=== PATIENT | male | born 1940 | race Hispanic/Latino ===

== ENCOUNTER 2017-01-16 21:35 | Observation (INO) | payer MEDICARE, MEDICAID ==
--- NOTE | 2017-01-16 21:50 | ED PDOC ---
Arrival/HPI - General Chief Complaint: Chest Pain Time Seen by Provider: 01/16/17 21:37 Historian: Patient, [facility] - History of Present Illness Narrative History of Present Illness (Text): 01/16/17 21:45 Gamaliel Francis is a 76 year old male, whose past medical history includes CAD with stenting, severe dilated cardiomyopathy, diabetes, hyperlipidemia, hypertension, arthritis, Parkinson's disease, and anxiety, who presents to the Emergency department transferred from [facility] complaining of chest pain 30 minutes prior to arrival. Patient states he was given medication at the [facility] and notes chest pain has improved. Patient states chest pain is currently 2/10. Patient also reports intermittent shortness of breath, none currently. Patient denies any fever, chills, nausea, vomiting, diarrhea, urinary symptoms, back pain, neck pain, headache, dizziness, or any other complaints. PMD: Dr. Elvira Jauregui Model Dresser: Dr. Esther Greenwood Time/Duration: 1/2 hour Symptom Onset: Gradual Symptom Course: Improving Activities at Onset: Rest, Light Context: Home ([facility]) Past Medical History - Provider Review Nursing Documentation Reviewed: Yes - Cardiac Hx Hypertension: Yes Hx Pacemaker: No Other/Comment: Athersclerotic heart disease - Pulmonary Hx Asthma: No Hx Chronic Obstructive Pulmonary Disease (COPD): No - Neurological Hx Paralysis: No - Endocrine/Metabolic Hx Diabetes Mellitus Type 2: Yes - Hematological/Oncological Hx Anemia: Yes Hx Blood Transfusions: No Hx Blood Transfusion Reaction: No - Musculoskeletal/Rheumatological Hx Musculoskeletal Disorders: No (PARKINSONS) - Psychiatric Hx Emotional Abuse: No Hx Physical Abuse: No Hx Substance Use: No - Surgical History Hx Cardiac Catheterization: No Hx Coronary Artery Bypass Graft: No - Anesthesia Hx Anesthesia Reactions: No Hx Malignant Hyperthermia: No - Suicidal Assessment Feels Threatened In Home Enviroment: No Family/Social History - Physician Review Nursing Documentation Reviewed: Yes Family/Social History: No Known Family HX Smoking Status: Never Smoked Hx Alcohol Use: No Hx Substance Use: No Allergies/Home Meds Allergies/Adverse Reactions: Allergies No Known Allergies Allergy (Verified 01/16/17 21:57) Home Medications: Home Meds Medication Instructions Recorded Confirmed Acetaminophen [Tylenol 325mg tab] 650 mg PO Q4H PRN 01/16/17 01/16/17 Acetaminophen [Tylenol 325mg tab] 650 mg PO Q4H PRN 01/16/17 01/16/17 Alprazolam [Xanax] 0.25 mg PO DAILY PRN 01/16/17 01/16/17 Aspirin [Adult Low Dose Aspirin EC] 81 mg PO DAILY 01/16/17 01/16/17 Atorvastatin [Lipitor] 40 mg PO DAILY 01/16/17 01/16/17 Benztropine [Cogentin] 1 mg PO DAILY 01/16/17 01/16/17 Carbidopa/Levodopa [Sinemet Cr 1 each PO TID 01/16/17 01/16/17 25-100 Tablet] Clopidogrel [Plavix] 75 mg PO DAILY 01/16/17 01/16/17 Fenofibrate Nanocrystallized 145 mg PO DAILY 01/16/17 01/16/17 [Tricor] Folic Acid 1 mg PO DAILY 01/16/17 01/16/17 Metformin HCl [Glucophage] 1,000 mg PO BID 01/16/17 01/16/17 Metoprolol Tartrate [Lopressor] 12.5 mg PO BID 01/16/17 01/16/17 Promethazine DM [Phenergan DM 5 ml PO Q4H PRN 01/16/17 01/16/17 Syrup] QUEtiapine [SEROquel] 50 mg PO DAILY 01/16/17 01/16/17 Valsartan [Diovan] 80 mg PO DAILY 01/16/17 01/16/17 oxyCODONE/Acetaminophen [Percocet 1 tab PO Q6H PRN 01/16/17 01/16/17 5/325 mg Tab] Review of Systems - Physician Review All systems were reviewed & negative as marked: Yes - Review of Systems Constitutional: Normal. absent: Fevers Eyes: Normal ENT: Normal Respiratory: SOB Cardiovascular: Chest Pain Gastrointestinal: Normal. absent: Abdominal Pain, Diarrhea, Nausea, Vomiting Genitourinary Male: Normal. absent: Dysuria, Frequency, Hematuria, Urinary Output Changes Musculoskeletal: Normal. absent: Back Pain, Neck Pain Skin: Normal. absent: Rash Neurological: Normal. absent: Headache, Dizziness Endocrine: Normal Hemo/Lymphatic: Normal Psychiatric: Normal Physical Exam Vital Signs Reviewed: Yes Vital Signs Temp Pulse Resp BP Pulse Ox 01/17/17 00:38 62 18 122/55 L 99 01/16/17 21:44 97.7 F 79 14 140/77 95 Temperature: Afebrile Blood Pressure: Normal Pulse: Regular Respiratory Rate: Normal Appearance: Positive for: Well-Appearing, Non-Toxic, Comfortable Pain Distress: None Mental Status: Positive for: Alert and Oriented X 3 - Systems Exam Head: Present: Atraumatic, Normocephalic Pupils: Present: PERRL Extroacular Muscles: Present: EOMI Conjunctiva: Present: Normal Mouth: Present: Moist Mucous Membranes Neck: Present: Normal Range of Motion Respiratory/Chest: Present: Clear to Auscultation, Good Air Exchange. No: Respiratory Distress, Accessory Muscle Use Cardiovascular: Present: Regular Rate and Rhythm, Normal S1, S2. No: Murmurs Abdomen: Present: Normal Bowel Sounds. No: Tenderness, Distention, Peritoneal Signs Back: Present: Normal Inspection Upper Extremity: Present: Normal Inspection. No: Cyanosis, Edema Lower Extremity: Present: Normal Inspection. No: Edema Neurological: Present: GCS=15, CN II-XII Intact, Speech Normal Skin: Present: Warm, Dry, Normal Color. 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 Plan: -- EKG -- Chest X-ray -- Labs, cardiac enzymes -- Reassess and disposition Prior Visits: Notes and results from previous visits were reviewed. On 11/05/2016, pt underwent cardiac catheterization with stent placement. Progress Notes: Reviewed EKG, NSR at [address] LBBB. Non-specific ST/T wave changes. Unchanged from EKG on 10/30/2016. 01/16/17 22:30 Reviewed radiology, Chest X-ray shows no acute processes. 01/17/17 00:[address] Moore, covering for Dr. Jauregui, who is aware and agrees with plan. Pt will go to Telemetry observation for chest pain under Dr. Jauregui's service. Dr Greenwood on consult. Pt is no acute distress, Discussed results and hospital observation plan with pt , who verbalizes understanding. - Lab Interpretations Lab Results: 01/16/17 22:15 01/16/17 22:15 Lab Results 01/16/17 22:15: Sodium 137, Potassium 3.9, Chloride 102, Carbon Dioxide 23, Anion Gap 16, BUN 23 H, Creatinine 1.1, Est GFR ( Amer) > 60, Est GFR ( Non-Af Amer) > 60, Random Glucose 103, Calcium 10.0, Magnesium 1.9, Total Bilirubin 0.9, AST 26, ALT 23, Alkaline Phosphatase 48, Lactate Dehydrogenase 647, Total Creatine Kinase 78, Troponin I < 0.01, NT-Pro-B Natriuret Pep 1380 H , Total Protein 7.9, Albumin 4.3, Globulin 3.6, Albumin/Globulin Ratio 1.2 01/16/17 22:15: WBC 7.6, RBC 3.98, Hgb 12.0 L, Hct 34.8 L, MCV 87.4, MCH 30.2, MCHC 34.5, RDW 13.2, Plt Count 203, MPV 9.1, Gran % 75.1 H, Lymph % (Auto) 16.3 L, [place] % (Auto) 5.8, Eos % (Auto) 2.5, Baso % (Auto) 0.3, Gran # 5.71, Lymph # 1.2, [place] # 0.4, Eos # 0.2, Baso # 0.02 I have reviewed the lab results: Yes - RAD Interpretation Radiology Orders: 01/16/17 21:57 CHEST PORTABLE [RAD] Stat Risk Investigator: ED Physician - EKG Interpretation Interpreted by ED Physician: Yes Type: 12 lead EKG - Medication Orders Current Medication Orders: Discontinued Medications Acetaminophen (Tylenol 325mg Tab) 650 mg PO Q4H PRN PRN Reason: Pain, Mild (1-3) Alprazolam (Xanax) 0.25 mg PO STAT STA PRN Reason: Protocol Stop: 01/17/17 02:59 Last Admin: 01/17/17 03:10 Dose: 0.25 mg Alprazolam (Xanax) 0.25 mg PO DAILY PRN; Protocol PRN Reason: Anxiety Stop: 01/24/17 09:22 Aspirin (Ecotrin) 81 mg PO DAILY [facility] Last Admin: 01/17/17 10:22 Dose: 81 mg Atorvastatin Calcium (Lipitor) 40 mg PO DIN LIOR Benztropine Mesylate (Cogentin) 1 mg PO DAILY [facility] Last Admin: 01/17/17 10:21 Dose: 1 mg Carbidopa/Levodopa (Sinemet Cr) 1 tab PO TID [facility] Last Admin: 01/17/17 14:23 Dose: 1 tab Clopidogrel Bisulfate (Plavix) 75 mg PO DAILY [facility] Last Admin: 01/17/17 10:23 Dose: 75 mg Fenofibrate (Tricor) 145 mg PO DAILY [facility] Last Admin: 01/17/17 10:23 Dose: 145 mg Folic Acid (Folic Acid) 1 mg PO DAILY [facility] Last Admin: 01/17/17 10:22 Dose: 1 mg Insulin Human Regular (Humulin R Low) 0 units SC [facility] PRN Reason: Protocol Last Admin: 01/17/17 12:21 Dose: 2 units Losartan Potassium (Cozaar) 50 mg PO DAILY [facility] Last Admin: 01/17/17 10:21 Dose: 50 mg Metformin HCl (Glucophage) 1,000 mg PO BID [facility] Last Admin: 01/17/17 10:22 Dose: 1,000 mg Metoprolol Tartrate (Lopressor) 12.5 mg PO BID [facility] Last Admin: 01/17/17 10:22 Dose: 12.5 mg Nitroglycerin (Nitro-Bid 2% Oint) 1 ea TOP ONCE STA Stop: 01/17/17 00:15 Last Admin: 01/17/17 00:38 Dose: Not Given Non-Admin Reason: Patient Refused Quetiapine Fumarate (Seroquel) 50 mg PO DAILY [facility] Last Admin: 01/17/17 10:23 Dose: 50 mg - Scribe Statement The provider has reviewed the documentation as recorded by the Vasu Brower All medical record entries made by the Vasu were at my direction and personally dictated by me. I have reviewed the chart and agree that the record accurately reflects my personal performance of the history, physical exam, medical decision making, and the department course for this patient. I have also personally directed, reviewed, and agree with the discharge instructions and disposition. Disposition/Present on Arrival - Present on Arrival Any Indicators Present on Arrival: No History of DVT/PE: No History of Uncontrolled Diabetes: No Urinary Catheter: No History of Decub. Ulcer: No History Surgical Site Infection Following: None - Disposition Have Diagnosis and Disposition been Completed?: Yes Diagnosis: Chest pain Disposition: HOSPITALIZED Disposition Time: 00:15 Condition: GOOD
[2017-01-16 22:22] LABS: ADD MANUAL DIFF? NO
[2017-01-16 22:35] LABS: BASO # 0.02 K/mm3 (0.0-2.0); BASO % 0.3 % (0.0-3.0); EOS # 0.2 (0.0-0.7); EOS % 2.5 % (1.5-5.0); GRAN # 5.71 (1.4-6.5); GRAN % 75.1 % (50.0-68.0); HEMATOCRIT 34.8 % (42.0-52.0); LYMPH # 1.2 (1.2-3.4); LYMPH % 16.3 % (22.0-35.0); MEAN CELL VOLUME 87.4 fL (80.0-105.0); MEAN CORPUSCULAR HEMOGLOBIN 30.2 pg (25.0-35.0); MEAN CORPUSCULAR HGB CONC 34.5 g/dl (31.0-37.0); MEAN PLATELET VOLUME 9.1 fl (7.0-11.0); MONO # 0.4 (0.1-0.6); MONO % 5.8 % (1.0-6.0); PLATELET COUNT 203 10^3/uL (120.0-450.0); RED CELL DISTRIBUTION WIDTH 13.2 % (11.5-14.5); WHITE BLOOD COUNT 7.6 10^3/ul (4.5-11.0)
[2017-01-16 22:40] LABS: ALB/GLOB RATIO 1.2 (1.1-1.8); ALKALINE PHOSPHATASE 48 U/L (38-133); ALT/SGPT 23 U/L (7-56); AST/SGOT 26 U/L (15-59); BILIRUBIN,TOTAL 0.9 mg/dL (0.2-1.3); BLOOD UREA NITROGEN 23 mg/dL (7-21); CARBON DIOXIDE 23 mmol/L (21-33); CHLORIDE 102 mmol/L (98-107); GFR AFRICAN-AMERICAN > 60; GLUCOSE,RANDOM 103 mg/dL (70-110); MAGNESIUM 1.9 mg/dL (1.7-2.2); POTASSIUM 3.9 mmol/L (3.6-5.0); SODIUM 137 mmol/L (132-148); TOTAL PROTEIN 7.9 g/dL (5.8-8.3)
[2017-01-16 22:48] LABS: TROPONIN I < 0.01 ng/mL
[2017-01-17] MEDS ORDERED: Nitroglycerin 2% Ointment Foilpak UD TOP STA (00:14)
--- NOTE | 2017-01-17 03:09 | CP.PCM.PN ---
Subjective - Date & Time of Evaluation Date of Evaluation: 01/17/17 Time of Evaluation: 02:57 - Subjective Subjective: S:Patient was seen at bedside because he was requesting xanax. States that he has been on xanax and can not sleep without having it. Can no tell me who has been prescribing xanax for him. Has no other complaints. Pertinent medical record was reviewed. O: Last Vital Signs 3 Temp 98.7 F 01/17/17 02:58 Pulse 60 01/17/17 02:58 Resp 20 01/17/17 02:58 BP 140/79 01/17/17 02:58 Pulse Ox 99 01/17/17 02:58 Awake, alert, not in distress. LUNGS: Normal breathing pattern NEURO:Speech is normal. A/P:Insomnia. Anxiety. Xanax 0.25 mg PO x 1. Objective - Vital Signs/Intake and Output Vital Signs (last 24 hours): Temp Pulse Resp BP Pulse Ox 97.7 F 62 18 122/55 L 99 01/16/17 21:44 01/17/17 00:38 01/17/17 00:38 01/17/17 00:38 01/17/17 00:38 - Medications Medications: Current Medications Acetaminophen (Tylenol 325mg Tab) 650 mg PO Q4H PRN PRN Reason: Pain, Mild (1-3) Insulin Human Regular (Humulin R Low) 0 units SC ACHS LIOR PRN Reason: Protocol
[2017-01-17 03:56] LABS: URINE APPEARANCE CLEAR (CLEAR); URINE BILIRUBIN NEGATIVE (NEGATIVE); URINE BLOOD NEGATIVE (NEGATIVE); URINE COLOR YELLOW (YELLOW); URINE GLUCOSE (UA) 100 mg/dL (NEGATIVE); URINE KETONE NEGATIVE (NEGATIVE); URINE LEUKOCYTE ESTERASE NEGATIVE Leu/uL (NEGATIVE); URINE PROTEIN NEGATIVE mg/dL (<30 mg/dL); URINE UROBILINOGEN 0.2 E.U./dL (<1 E.U./dL)
[2017-01-17 04:03] VITALS: BMI 25.4
[2017-01-17 06:01] VITALS: O2SAT 98
[2017-01-17] MEDS: Insulin Reg-LOW-Coverage SC SCH ×2 (08:03→12:21)
--- NOTE | 2017-01-17 08:43 | RAD ---
PROCEDURE: CHEST RADIOGRAPH, 1 VIEW HISTORY: cp COMPARISON: None available. FINDINGS: LUNGS: Clear. PLEURA: No pneumothorax or pleural fluid seen. CARDIOVASCULAR: Normal. OSSEOUS STRUCTURES: The osseous structures demonstrate degenerative changes. VISUALIZED UPPER ABDOMEN: Upper abdomen is suboptimally evaluated. OTHER FINDINGS: None. IMPRESSION: Clear lungs.
[2017-01-17 09:44] LABS: HEMATOCRIT 34.4 % (42.0-52.0); MEAN CELL VOLUME 88.2 fL (80.0-105.0); MEAN PLATELET VOLUME 9.4 fl (7.0-11.0); RED CELL DISTRIBUTION WIDTH 13.4 % (11.5-14.5); WHITE BLOOD COUNT 5.7 10^3/ul (4.5-11.0)
[2017-01-17] MEDS ORDERED: Non Formulary Medication (Valsartan [Diovan] 80 MG) PO SCH (10:00)
[2017-01-17] MEDS ORDERED: Non Formulary Medication (Quetiapine [Seroquel] 50 MG) PO SCH (10:00)
[2017-01-17 10:18] LABS: ALB/GLOB RATIO 1.1 (1.1-1.8); ALKALINE PHOSPHATASE 46 U/L (38-133); ALT/SGPT 29 U/L (7-56); AST/SGOT 42 U/L (15-59); BILIRUBIN,TOTAL 0.9 mg/dL (0.2-1.3); BLOOD UREA NITROGEN 22 mg/dL (7-21); CALCIUM 9.6 mg/dL (8.4-10.5); CARBON DIOXIDE 22 mmol/L (21-33); CHLORIDE 103 mmol/L (98-107); GFR AFRICAN-AMERICAN > 60; GLUCOSE,RANDOM 91 mg/dL (70-110); POTASSIUM 3.9 mmol/L (3.6-5.0); SODIUM 138 mmol/L (132-148); TOTAL PROTEIN 7.4 g/dL (5.8-8.3)
[2017-01-17] MEDS: Carbidopa/Levodopa 25/100 CR PO SCH ×2 (10:23→14:23)
[2017-01-17 10:38] LABS: TROPONIN I < 0.01 ng/mL
--- NOTE | 2017-01-17 10:38 | CARD ---
APPROVED REPORT EKG Measurement Heart [id number] <Conclusion> Normal sinus rhythm Left bundle branch block No change
[2017-01-17 11:50] VITALS: BP 140/83; PULSE 66; RESP 19; TEMP 97.9
--- NOTE | 2017-01-17 13:40 | HP ---
I know the patient very well. I see [facility] at [facility] monthly. Apparently, he came in last night with chest pain. It was severe, was not feeling well and they came in for observation for chest pain, to get troponins and to make sure we are not missing a heart attack. PAST MEDICAL HISTORY: CAD with stenting, severe dilated cardiomyopathy, diabetes, hyperlipidemia, hy pertension, arthritis, Parkinson disease and anxiety, atherosclerotic heart disease, type 2 diabetes, COPD. FAMILY HISTORY: Hypertension in the family. He never smoked, never drank, did not do drugs. ALLERGIES: No known drug allergies. MEDICATIONS: He is on a lot. Xanax, Tylenol, aspirin, Lipitor, benztropine, Sinemet, Plavix, TriCor , folic acid, Glucophage, Lopressor, Phenergan DM, Seroquel, Diovan and Percocet p.r.n. which he does not really take. REVIEW OF SYSTEMS: No acute changes in vision or hearing. No sore throat. No headache, dizziness, numbness. No shortness of breath, no coughing, no mucus. There is chest pain, some pressure, none n ow, that subsided. No nausea, vomiting, constipation, diarrhea. He is urinating fine. No joint navin ns or back pains. He does walk with a shuffle from the Parkinson's. Skin is intact, no rashes. No bleeding. PHYSICAL EXAMINATION: VITAL SIGNS: He has a 97.7 temp, 79 pulse, 14 respiratory rate, 140/77 blood pressure, 95% O2 sat on room air. HEENT: His head is atraumatic, normocephalic. Extraocular muscles are intact. Pupils equally reacti ve to light and accommodation. Throat is moist. GENERAL: He is well-appearing, nontoxic, comfortable. He is alert and oriented x 3. NECK: Supple. Good range of motion. HEART: Regular rate. Normal S1, S2. LUNGS: Decreased breath sounds, but clear to auscultation. ABDOMEN: Soft, nontender, positive bowel sounds, no guarding, no rebound, no CVA tenderness. EXTREMITIES: Have no edema. NEUROLOGIC: His GCS is 15. Cranial nerves II-XII grossly intact. Normal speech. Alert and oriente d x 3. SKIN: Warm and dry. No rashes. Intact. MUSCULOSKELETAL: The chest pain has left him at this time. He had multiple tests. Urine is clean. He has a 137 sodium, potassium 3.9, BUN 23, creatinine 1.1, GFR is greater than 60, sugar is 103, calcium is 10, magnesium 1.9, total bili is 0.9, AST is 26, ALT is 23, alk phos 48. Troponin I is less than 0.01. I am waiting for the next one. BNP is 1380. To dwaine protein 7.9, albumin is 4.3. White count 7.6, 12 hemoglobin, 34.8 hematocrit with 203 platelets. He will be put back on his medication. He will have another troponin this morning. His chest x-ray showed clear lungs. I will not give him any diuretics for the elevated BNP. He is here for chest pa in, waiting for one more troponin. There is a consult for cardiology. They can follow up on the out patient. He will probably go home on the same medications he came in on and he is here for chest navin n, rule out myocardial infarction. The patient is comfortable, resting in bed. I am hoping to disch arge him later today when the labs come back. Glen Jauregui DO cc: [id number] TT: 01/17/2017 13:39:38 en
--- NOTE | 2017-01-17 19:40 | DS ---
He came in for chest pain. He is doing a lot better, waiting for the troponin to come back. When it comes back normal, like the first one, he will be transferred back to [facility] at the [facility] he is from. He will go back on his same medications that he came in on. VITAL SIGNS: 98.2, 62 pulse, 123/61 blood pressure, 98% room air, 18 respiratory rate. PLAN: He has got stat labs for this morning and I am hoping that they are good, and when they are go od, he will be discharged home. He understands that. He wants to go back to the [facility] today. His chest pain is all gone. He did very well so far. He will be discharged back to the [facility]. Glen Jauregui DO cc: [id number] TT: 01/17/2017 19:40:14 margaret
== END 2017-01-17 14:42 | disposition home or self-care (01) ==
LOC: ED 21:35 → ERH 01-17 00:33 → 2RSO 01-17 02:27
PROVIDERS: ADMIT Family Medicine; ATTEND Family Medicine
DX: R07.9 Chest pain, unspecified (principal); I42.0 Dilated cardiomyopathy; I25.10 Atherosclerotic heart disease of native coronary artery without angina pectoris; I10 Essential (primary) hypertension; G20 Parkinson's disease; F41.9 Anxiety disorder, unspecified; E11.9 Type 2 diabetes mellitus without complications; M19.90 Unspecified osteoarthritis, unspecified site; J44.9 Chronic obstructive pulmonary disease, unspecified; E78.5 Hyperlipidemia, unspecified; G47.00 Insomnia, unspecified; Z95.5 Presence of coronary angioplasty implant and graft; Z82.49 Family history of ischemic heart disease and other diseases of the circulatory system
CPT/HCPCS: 36415; 71010; 80053; 81003; 82550; 83615; 83735; 83880; 84484; 85025; 85027; 93005; 99285; G0378

== ENCOUNTER 2017-11-22 19:38 | Emergency (ER) | payer MEDICARE, MEDICAID ==
[2017-11-22 19:41] VITALS: BMI 25.4
[2017-11-22] MEDS ORDERED: Oxymetazoline 0.05% Nasal Spray (30 ml) NS STA (20:00)
--- NOTE | 2017-11-22 20:00 | ED PDOC ---
Arrival/HPI - General Chief Complaint: Dizziness/Lightheaded Time Seen by Provider: 11/22/17 19:51 Historian: Patient - History of Present Illness Narrative History of Present Illness (Text): 11/22/17 19:57 Gamaliel Francis is a 77 year old male, whose past medical history includes CAD with stenting, severe dilated cardiomyopathy, diabetes, hyperlipidemia, hypertension, arthritis, Parkinson's disease, and anxiety, who presents to the Emergency department transferred from [facility] complaining of intermittent epistaxis from right nare and coughing up dark colored mucus today. No other complaints offered at this time. Time/Duration: 24 hours Symptom Course: Intermittent Activities at Onset: Light Context: Home Past Medical History - Provider Review Nursing Documentation Reviewed: Yes - Cardiac Hx Hypertension: Yes Hx Pacemaker: No Other/Comment: Athersclerotic heart disease - Pulmonary Hx Asthma: No Hx Chronic Obstructive Pulmonary Disease (COPD): No - Neurological Hx Paralysis: No - HEENT Hx HEENT Disorder: Yes (uses eyeglasses) - Renal Hx Renal Disorder: No - Endocrine/Metabolic Hx Diabetes Mellitus Type 2: Yes - Hematological/Oncological Hx Anemia: Yes Hx Blood Transfusions: No Hx Blood Transfusion Reaction: No - Integumentary Hx Dermatological Disorder: No - Musculoskeletal/Rheumatological Hx Musculoskeletal Disorders: No (PARKINSONS) - Gastrointestinal Hx Gastrointestinal Disorders: No - Genitourinary/Gynecological Hx Genitourinary Disorders: No - Psychiatric Hx Emotional Abuse: No Hx Physical Abuse: No Hx Substance Use: No - Surgical History Hx Cardiac Catheterization: No Hx Coronary Artery Bypass Graft: No - Anesthesia Hx Anesthesia: Yes Hx Anesthesia Reactions: No Hx Malignant Hyperthermia: No - Suicidal Assessment Feels Threatened In Home Enviroment: No Family/Social History - Physician Review Nursing Documentation Reviewed: Yes Family/Social History: No Known Family HX Smoking Status: Never Smoked Hx Alcohol Use: No Hx Substance Use: No Allergies/Home Meds Allergies/Adverse Reactions: Allergies No Known Allergies Allergy (Verified 01/16/17 21:57) Home Medications: Home Meds Medication Instructions Recorded Confirmed Acetaminophen [Tylenol 325mg tab] 650 mg PO Q4H PRN 01/16/17 01/16/17 Acetaminophen [Tylenol 325mg tab] 650 mg PO Q4H PRN 01/16/17 01/16/17 Alprazolam [Xanax] 0.25 mg PO DAILY PRN 01/16/17 01/16/17 Aspirin [Adult Low Dose Aspirin EC] 81 mg PO DAILY 01/16/17 01/16/17 Atorvastatin [Lipitor] 40 mg PO DAILY 01/16/17 01/16/17 Benztropine [Cogentin] 1 mg PO DAILY 01/16/17 01/16/17 Carbidopa/Levodopa [Sinemet Cr 1 each PO TID 01/16/17 01/16/17 25-100 Tablet] Clopidogrel [Plavix] 75 mg PO DAILY 01/16/17 01/16/17 Fenofibrate Nanocrystallized 145 mg PO DAILY 01/16/17 01/16/17 [Tricor] Folic Acid 1 mg PO DAILY 01/16/17 01/16/17 Metformin HCl [Glucophage] 1,000 mg PO BID 01/16/17 01/16/17 Metoprolol Tartrate [Lopressor] 12.5 mg PO BID 01/16/17 01/16/17 Promethazine DM [Phenergan DM 5 ml PO Q4H PRN 01/16/17 01/16/17 Syrup] QUEtiapine [SEROquel] 50 mg PO DAILY 01/16/17 01/16/17 Valsartan [Diovan] 80 mg PO DAILY 01/16/17 01/16/17 oxyCODONE/Acetaminophen [Percocet 1 tab PO Q6H PRN 01/16/17 01/16/17 5/325 mg Tab] Review of Systems - Review of Systems Constitutional: absent: Fevers, Night Sweats Eyes: absent: Vision Changes ENT: Epistaxis. absent: Hearing Changes Respiratory: absent: SOB Cardiovascular: absent: Chest Pain Gastrointestinal: absent: Abdominal Pain Genitourinary Male: absent: Dysuria Musculoskeletal: absent: Arthralgias, Back Pain Skin: absent: Rash, Pruritis Neurological: absent: Headache, Dizziness Endocrine: absent: Diaphoresis Hemo/Lymphatic: absent: Adenopathy Psychiatric: absent: Anxiety, Depression Physical Exam Vital Signs Reviewed: Yes Vital Signs Temp Pulse Resp BP Pulse Ox 11/22/17 23:20 97.9 F 74 18 149/81 97 11/22/17 20:09 98.3 F 78 20 153/83 H 99 - Systems Exam Head: Present: Atraumatic, Normocephalic Pupils: Present: PERRL Extroacular Muscles: Present: EOMI Conjunctiva: Present: Normal Mouth: Present: Moist Mucous Membranes Pharnyx: Present: Other (posterior pharynx without post nasal drip or bleeding) Nose (Internal): Present: Other (Dried blood in both nares) Neck: Present: Normal Range of Motion Respiratory/Chest: Present: Clear to Auscultation, Good Air Exchange. No: Respiratory Distress, Accessory Muscle Use Cardiovascular: Present: Regular Rate and Rhythm, Normal S1, S2. No: Murmurs Abdomen: Present: Normal Bowel Sounds. No: Tenderness, Distention, Peritoneal Signs Back: Present: Normal Inspection Upper Extremity: Present: Normal Inspection. No: Cyanosis, Edema Lower Extremity: Present: Normal Inspection. No: Edema Neurological: Present: GCS=15, CN II-XII Intact, Speech Normal Skin: Present: Warm, Dry, Normal Color. No: Rashes Psychiatric: Present: Alert, Oriented x 3, Normal Insight, Normal Concentration Medical Decision Making ED Course and Treatment: 11/22/17 20:01 Impression: 77 year old male complaining of intermittent epistaxis from right nare and coughing up dark colored mucus today Plan: -- Chest X-ray -- Type and Screen -- Labs -- EKG -- Afrin -- Reassess and disposition Prior Visits: Notes and results from previous visits were reviewed. Patient was last seen in the emergency department on 01/16/17 for chest pain. Patient was admitted to hospitalist care for further evaluation. Progress Notes: 11/22/17 21:45 Chest X-ray- Wide mediastinum, no active disease, as read by me. CT Chest With Intravenous Contrast FINDINGS: LUNGS: Mild emphysema. Biapical scarring/blebs. Bibasilar atelectasis/scarring. PLEURAL SPACE: No pneumothorax. No significant effusion. HEART: No cardiomegaly. No significant pericardial effusion. BONES/JOINTS: Degenerative changes. No acute fracture. SOFT TISSUES: Unremarkable. VASCULATURE: Atherosclerosis. No thoracic aortic aneurysm. LYMPH NODES: No enlarged lymph nodes. PANCREAS: Difuse pancreatic calcifications from chronic pancreatitis. IMPRESSION: 1. Mild emphysema. Biapical scarring/blebs. Bibasilar atelectasis/scarring. 2. Difuse pancreatic calcifications from chronic pancreatitis. Thank you for allowing us to participate in the care of your patient. Dictated and Authenticated by: Sabrina Olivier MD 11/23/2017 12:07 AM Eastern Time ([place] & [place]) 11/23/17 00:23 EKG: Ordered, reviewed, and independently interpreted the EKG. Rate : 70 BPM Rhythm : NSR Interpretation : left bundle branch block - Lab Interpretations Lab Results: 11/22/17 21:34 11/22/17 21:34 Lab Results 11/22/17 21:34: Blood Type O POSITIVE, Antibody Screen Negative, BBK History Checked Patient has bt 11/22/17 21:34: Sodium 140, Potassium 5.0, Chloride 105, Carbon Dioxide 25, Anion Gap 15, BUN 44 H, Creatinine 1.4, Est GFR ( Amer) 59, Est GFR (Non- Af Amer) 49, Random Glucose 200 H, Calcium 9.9, Total Bilirubin 0.3, AST 51, ALT 25, Alkaline Phosphatase 91, Total Protein 7.6, Albumin 4.0, Globulin 3.6, Albumin/Globulin Ratio 1.1 11/22/17 21:34: PT 14.1 H, INR 1.23 H 11/22/17 21:34: WBC 7.3 D, RBC 3.40 L, Hgb 10.5 L, Hct 30.4 L, MCV 89.4, MCH 30.9, MCHC 34.5, RDW 12.2, Plt Count 217, MPV 9.1, Gran % 71.7 H, Lymph % (Auto ) 20.8 L, [place] % (Auto) 4.2, Eos % (Auto) 2.9, Baso % (Auto) 0.4, Gran # 5.24, Lymph # (Auto) 1.5, [place] # (Auto) 0.3, Eos # (Auto) 0.2, Baso # (Auto) 0.03 I have reviewed the lab results: Yes - RAD Interpretation Radiology Orders: 11/22/17 20:00 CHEST PORTABLE [RAD] Stat 11/22/17 21:42 CHEST W/CONTRAST [CT] Stat - Medication Orders Current Medication Orders: Discontinued Medications Sodium Chloride (Sodium Chloride 0.9%) 1,000 mls @ 999 mls/hr IV .Q1H1M STA Stop: 11/22/17 22:43 Last Admin: 11/22/17 22:11 Dose: 999 mls/hr eMAR Start Stop Document 11/22/17 22:11 LA (Rec: 11/22/17 22:11 LA [id number]) Intravenous Solution Start Date 11/22/17 Start Time 22:11 Oxymetazoline HCl (Afrin 0.05%) 1 ml NS STAT STA Stop: 11/22/17 20:01 Last Admin: 11/22/17 21:31 Dose: 1 ml - PA / AWS DEVELOPER / Resident Statement MD/DO has reviewed & agrees with the documentation as recorded. - Scribe Statement The provider has reviewed the documentation as recorded by the Scribe Cynthia Houston Provider Scribe Attestation: All medical record entries made by the Scribe were at my direction and personally dictated by me. I have reviewed the chart and agree that the record accurately reflects my personal performance of the history, physical exam, medical decision making, and the department course for this patient. I have also personally directed, reviewed, and agree with the discharge instructions and disposition. Disposition/Present on Arrival - Present on Arrival Any Indicators Present on Arrival: No History of DVT/PE: No History of Uncontrolled Diabetes: No Urinary Catheter: No History of Decub. Ulcer: No History Surgical Site Infection Following: None - Disposition Have Diagnosis and Disposition been Completed?: Yes Diagnosis: Epistaxis, recurrent Disposition: HOME/ ROUTINE Disposition Time: 00:18 Patient Plan: Discharge Condition: GOOD Discharge Instructions (ExitCare): Nosebleeds (DC) Additional Instructions: Mr Francis- Soremma this happened to you today. Do Not Eat or Drink anything Hot, the nosebleed will come back. Follow up with ENT. Use the Flonase twice daily. All of your other tests were good. Return to us if any problems. Macho- Dr. Killian Lanier Prescriptions: Fluticasone Furoate [Flonase Sensimist] 9.9 ml NS BID #1 spray.susp Referrals: Glen Jauregui DO [Primary Care Provider] - Follow up with primary Preston Gonzalez DO [Staff Provider] - Follow up with primary Forms: Wys[employer] (Tajik)
[2017-11-22] MEDS ORDERED: Sodium Chloride 0.9% 1,000 ML IV STA (21:43)
[2017-11-22 21:55] LABS: BASO # 0.03 K/mm3 (0.0-2.0); BASO % 0.4 % (0.0-3.0); EOS # 0.2 (0.0-0.7); EOS % 2.9 % (1.5-5.0); GRAN # 5.24 (1.4-6.5); GRAN % 71.7 % (50.0-68.0); HEMOGLOBIN 10.5 g/dL (14.0-18.0); LYMPH # 1.5 (1.2-3.4); LYMPH % 20.8 % (22.0-35.0); MEAN CELL VOLUME 89.4 fl (80.0-105.0); MEAN CORPUSCULAR HEMOGLOBIN 30.9 pg (25.0-35.0); MEAN CORPUSCULAR HGB CONC 34.5 g/dl (31.0-37.0); MEAN PLATELET VOLUME 9.1 fl (7.0-11.0); MONO # 0.3 (0.1-0.6); MONO % 4.2 % (1.0-6.0); RBC 3.4 10^6/uL (3.5-6.1); RED CELL DISTRIBUTION WIDTH 12.2 % (11.5-14.5); WHITE BLOOD COUNT 7.3 10^3/ul (4.5-11.0)
[2017-11-22 22:00] LABS: INR 1.23 (0.93-1.08); PROTHROMBIN TIME 14.1 SECONDS (9.4-12.5)
[2017-11-22 22:06] LABS: ALB/GLOB RATIO 1.1 (1.1-1.8); CALCIUM 9.9 mg/dL (8.4-10.5)
[2017-11-22] MEDS ORDERED: Iohexol 350 MG/100 ML VIAL ONE (22:09)
[2017-11-23 00:58] VITALS: BP 149/81; PULSE 74; RESP 18; TEMP 97.9; O2SAT 97
--- NOTE | 2017-11-23 08:53 | CT ---
PROCEDURE: CT Chest with contrast HISTORY: Widened Mediastinum COMPARISON: None. TECHNIQUE: Contiguous axial images were obtained through the chest with intravenous contrast enhancement. Sagittal and coronal reconstructions were performed. IV contrast: 100 cc of Omni 350 Radiation dose (DLP): 431 mGy-cm. This CT exam was performed using one or more of the following dose reduction techniques: Automated exposure control, adjustment of the mA and/or kV according to patient size, and/or use of iterative reconstruction technique. FINDINGS: LUNGS: There is some parenchymal scarring in the right lung apex. Mild emphysematous changes are seen. MEDIASTINUM: Unremarkable thoracic aorta. No aneurysm or dissection. Normal sized heart. Main pulmonary artery unremarkable. No vascular congestion. No lymphadenopathy. PLEURA: No pleural fluid. No pneumothorax. BONES: No fracture. No destructive lesion. UPPER ABDOMEN: Coarse calcifications are seen in the pancreas consistent with previous pancreatitis OTHER FINDINGS: The report concurs with the preliminary [facility] report IMPRESSION: No acute findings
--- NOTE | 2017-11-23 09:24 | RAD ---
HISTORY: Generalized Weakness/NoseBleed COMPARISON: 01/16/2017 FINDINGS: LUNGS: Background COPD probable. No consolidative infiltrate trace strandy fibrotic changes Sylvester extreme right costophrenic angle PLEURA: No significant pleural effusion identified, no pneumothorax apparent. CARDIOVASCULAR: Mild cardiomegaly - similar OSSEOUS STRUCTURES: Mild thoracic spondylosis. Bilateral shoulder arthrosis. Interval perceived slight deformity posterior right 7th rib -interval healed fracture here 1 consideration. Summation of crisscrossing the vessels are another. VISUALIZED UPPER ABDOMEN: Normal. OTHER FINDINGS: None. IMPRESSION: No interval acute cardiopulmonary pathology noted. Possible old interval healed right posterior 7th rib fracture (versus summation of overlying anatomy
--- NOTE | 2017-11-23 10:00 | CARD ---
APPROVED REPORT EKG Measurement Heart [id number] <Conclusion> Normal sinus rhythm Left bundle branch block Abnormal ECG
== END 2017-11-23 01:18 | disposition home or self-care (01) ==
LOC: ED 19:38
DX: R04.0 Epistaxis (principal); E11.9 Type 2 diabetes mellitus without complications; E78.5 Hyperlipidemia, unspecified; I10 Essential (primary) hypertension; I25.10 Atherosclerotic heart disease of native coronary artery without angina pectoris; G20 Parkinson's disease
CPT/HCPCS: 71045; 71260; 80053; 85025; 85610; 86850; 86900; 93005; 99285; J7040; Q9967

== ENCOUNTER 2018-08-23 12:52 | Inpatient (IN) | payer MEDICARE, MEDICAID ==
[2018-08-23 13:04] VITALS: BMI 23.8
--- NOTE | 2018-08-23 13:36 | ED PDOC ---
Arrival/HPI - History of Present Illness Narrative History of Present Illness (Text): 78 y/o M with PMHx of CAD s/p stents, DM, HTN, HLD, anxiety, parkinson's presents to ED after being transferred from [facility] for progressive b/l LE weakness. This am, pt reports he went to get out of bed when he felt weak in his legs and fell to the ground. He reports that he did not hit his head or sustain any injury, however remained on the ground for about 3 hours. He denied any preceding headache, dizziness, chest pain, palpitations, shortness of breath, tongue biting prior to the fall. He denies any current complaints in ED. He reports he did not eat breakfast this am. Per senior care docs, pt was recently treated for H. Pylori with amoxicillin, clarithromycin and PPI. His 12 point ROS is negative. 08/23/18 13:43 Time/Duration: Prior to Arrival Symptom Onset: Sudden Symptom Course: Resolved Context: Standing <Romain Mast - Last Filed: 08/23/18 19:58> <Compa Sood - Last Filed: 08/23/18 20:09> - General Time Seen by Provider: 08/23/18 12:59 Past Medical History - Provider Review Nursing Documentation Reviewed: Yes - Infectious Disease Hx of Infectious Diseases: None - Cardiac Hx Hypertension: Yes Hx Pacemaker: No Other/Comment: Athersclerotic heart disease - Pulmonary Hx Asthma: No Hx Chronic Obstructive Pulmonary Disease (COPD): No - Neurological Hx Parkinson's Disease: Yes - HEENT Hx HEENT Disorder: Yes (uses eyeglasses) - Renal Hx Renal Disorder: No - Endocrine/Metabolic Hx Diabetes Mellitus Type 2: Yes - Hematological/Oncological Hx Anemia: Yes Hx Blood Transfusions: No Hx Blood Transfusion Reaction: No - Integumentary Hx Dermatological Disorder: No - Musculoskeletal/Rheumatological Hx Musculoskeletal Disorders: No (PARKINSONS) - Gastrointestinal Hx Gastrointestinal Disorders: No - Genitourinary/Gynecological Hx Genitourinary Disorders: No - Psychiatric Hx Emotional Abuse: No Hx Physical Abuse: No Hx Substance Use: No - Surgical History Hx Cardiac Catheterization: No Hx Coronary Artery Bypass Graft: No - Anesthesia Hx Anesthesia: Yes Hx Anesthesia Reactions: No Hx Malignant Hyperthermia: No - Suicidal Assessment Feels Threatened In Home Enviroment: No <Romain Mast - Last Filed: 08/23/18 19:58> Family/Social History - Physician Review Nursing Documentation Reviewed: Yes Family/Social History: Diabetes, Hypertension, CAD/[place] Smoking Status: Never Smoked Hx Alcohol Use: No Hx Substance Use: No <Romain Mast - Last Filed: 08/23/18 19:58> Allergies/Home Meds <Romain Mast - Last Filed: 08/23/18 19:58> <Compa Sood - Last Filed: 08/23/18 20:09> Allergies/Adverse Reactions: Allergies No Known Allergies Allergy (Verified 08/23/18 13:04) Home Medications: Home Meds Medication Instructions Recorded Confirmed RX: Acetaminophen [Tylenol 325mg 650 mg PO Q4H PRN 01/16/17 08/23/18 tab] RX: Acetaminophen [Tylenol 325mg 650 mg PO Q4H PRN 01/16/17 08/23/18 tab] RX: Alprazolam [Xanax] 0.25 mg PO DAILY PRN 01/16/17 08/23/18 RX: Aspirin [Adult Low Dose 81 mg PO DAILY 01/16/17 08/23/18 Aspirin EC] RX: Atorvastatin [Lipitor] 40 mg PO DAILY 01/16/17 08/23/18 RX: Carbidopa/Levodopa [Sinemet Cr 1 each PO TID 01/16/17 08/23/18 25-100 Tablet] RX: Clopidogrel [Plavix] 75 mg PO DAILY 01/16/17 08/23/18 RX: Fenofibrate Nanocrystallized 145 mg PO DAILY 01/16/17 08/23/18 [Tricor] RX: Folic Acid 1 mg PO DAILY 01/16/17 08/23/18 RX: Metoprolol Tartrate [Lopressor] 12.5 mg PO BID 01/16/17 08/23/18 RX: Promethazine DM [Phenergan DM 5 ml PO Q4H PRN 01/16/17 08/23/18 Syrup] RX: QUEtiapine [SEROquel] 50 mg PO DAILY 01/16/17 08/23/18 Amoxicillin 2 tab PO DAILY 08/23/18 08/23/18 Benztropine Mesylate 1 mg PO DAILY 08/23/18 08/23/18 SITagliptin [Januvia] 1 tab PO HS 08/23/18 08/23/18 Review of Systems - Review of Systems Constitutional: Normal Eyes: Normal ENT: Normal Respiratory: Normal Cardiovascular: Normal Gastrointestinal: Normal Genitourinary Male: Normal Musculoskeletal: Normal Skin: Normal Neurological: Normal Endocrine: Normal Hemo/Lymphatic: Normal Psychiatric: Normal <Romain Mast - Last Filed: 08/23/18 19:58> Physical Exam Vital Signs Reviewed: Yes Vital Signs Temp Pulse Resp BP Pulse Ox 08/23/18 13:17 98.1 F 76 18 159/66 H 98 - Systems Exam Head: Present: Atraumatic, Normocephalic Pupils: Present: PERRL Extroacular Muscles: Present: EOMI Conjunctiva: Present: Normal Mouth: Present: Moist Mucous Membranes Neck: Present: Normal Range of Motion Respiratory/Chest: Present: Clear to Auscultation, Good Air Exchange. No: Respiratory Distress, Accessory Muscle Use Cardiovascular: Present: Regular Rate and Rhythm, Normal S1, S2. No: Murmurs Abdomen: No: Tenderness, Distention, Peritoneal Signs Back: Present: Normal Inspection Upper Extremity: Present: Normal Inspection. No: Cyanosis, Edema Lower Extremity: Present: Normal Inspection. No: Edema Neurological: Present: GCS=15, CN II-XII Intact, Speech Normal, Motor Func Grossly Intact, Normal Sensory Function, Normal Cerebellar Funct Skin: Present: Warm, Dry, Normal Color. No: Rashes Psychiatric: Present: Alert, Oriented x 3, Normal Insight, Normal Concentration <ProRomain palafox - Last Filed: 08/23/18 19:58> Vital Signs Temp Pulse Resp BP Pulse Ox 08/23/18 13:17 98.1 F 76 18 159/66 H 98 <Compa Sood - Last Filed: 08/23/18 20:09> Medical Decision Making ED Course and Treatment: 78 year old M with PMHx CAD s/p stents, DM, HTN, HLD, anxiety, parkinson's transerred to [facility] [place] from [facility] for an episode of fall. Plan: -- CT of Head -- EKG -- Labs -- Chest X-ray -- IV Fluids -- Urinalysis Pt found to have elevated Cr on CMP. Case discussed with PMD, Dr. Jauregui who agrees to admit patient to observation with nephrology consultation. Pt to be admitted to observation. Consult nephrology 08/23/18 18:48 08/23/18 18:49 08/23/18 18:51 - RAD Interpretation Narrative RAD Interpretations (Text): HEAD W/O CONTRAST [CT] Stat Limited age-related neuro degenerative findings as discussed above. No acute intracranial findings. Cross-sectional imaging follow-up as clinically warranted. Chest Xray Trace right pleural effusion not excluded. Exam otherwise unremarkable and stable in the interval. Radiology Orders: 08/23/18 13:32 CHEST PORTABLE [RAD] Stat Cashier Clerk: Radiologist - EKG Interpretation EKG Interpretation (Text): sinus rhythm w/ 1st degree av block L axis deviation L bundle branch block Interpreted by ED Physician: Yes Type: 12 lead EKG Comparison: Similar to previous EKG - Transfer of Care Patient signed out to Dr:: Shania <Romain Mast - Last Filed: 08/23/18 19:58> ED Course and Treatment: 08/23/18 13:32 Impression: 78 year old male presents to the ED complaining of bilateral LE weakness. In agreement with resident note which contains more details about the patient. Patient seen and evaluated with resident. Came up with plan and treatment together. Plan: -- CT of Head -- EKG -- Labs -- Chest X-ray -- IV Fluids -- Urinalysis -- Reassess and disposition 08/23/18 20:08 pt seen with resident. s/p fall/weakness. no complaint in er. labs with roby. ct neg. discussed with dr jauregui. requests obs. - Lab Interpretations Lab Results: 08/23/18 13:56 08/23/18 13:56 Lab Results 08/23/18 13:56: Sodium 142, Potassium 4.5, Chloride 112 H, Carbon Dioxide 20 L, Anion Gap 15, BUN 42 H, Creatinine 2.7 H, Est GFR ( Amer) 28, Est GFR (Non-Af Amer) 23, Random Glucose 92, Calcium 9.5, Magnesium 2.2, Total Bilirubin 0.6, AST 29, ALT 24, Alkaline Phosphatase 61, Lactate Dehydrogenase 963 H, Total Creatine Kinase 231 H, CK-MB (CK-2) 3.4, CK-MB (CK-2) % Cancelled, Troponin I < 0.01, Total Protein 8.0, Albumin 4.2, Globulin 3.7, Albumin/Globulin Ratio 1.1 08/23/18 13:56: Urine Color Light yellow, Urine Appearance Clear, Urine pH 6.0, Ur Specific [place] 1.020, Urine Protein Negative, Urine Glucose (UA) Negative, Urine Ketones Negative, Urine Blood Negative, Urine Nitrate Negative, Urine Bilirubin Negative, Urine Urobilinogen 0.2, Ur Leukocyte Esterase Negative 08/23/18 13:56: PT 14.9 H, INR 1.30, APTT 30.7 08/23/18 13:56: WBC 5.8, RBC 3.76, Hgb 11.1 L, Hct 33.4 L, MCV 88.8, MCH 29.5, MCHC 33.2, RDW 13.5, Plt Count 131, MPV 9.7, Gran % 68.3 H, Lymph % (Auto) 22.1, [place] % (Auto) 5.6, Eos % (Auto) 3.7, Baso % (Auto) 0.3, Gran # 3.93, Lymph # (Auto) 1.3, [place] # (Auto) 0.3, Eos # (Auto) 0.2, Baso # (Auto) 0.02 - RAD Interpretation Radiology Orders: 08/23/18 13:32 HEAD W/O CONTRAST [CT] Stat CHEST PORTABLE [RAD] Stat - Medication Orders Current Medication Orders: Sodium Chloride (Sodium Chloride 0.9%) 1,000 mls @ 100 mls/hr IV .Q10H LIOR Last Admin: 08/23/18 15:37 Dose: 100 mls/hr eMAR Start Stop Document 08/23/18 15:37 LA (Rec: 08/23/18 15:37 LA [facility] [place]-ER-20) Intravenous Solution Start Date 08/23/18 Start Time 15:37 End Date 08/23/18 <Compa Sood - Last Filed: 08/23/18 20:09> - PA / CERTIFIED SURGICAL TECHNICIAN / Resident Statement / has reviewed & agrees with the documentation as recorded. / has examined the patient and agrees with the treatment plan. - Scribe Statement The provider has reviewed the documentation as recorded by the Scribe Nighat Jorgensen. All medical record entries made by the Scribe were at my direction and personally dictated by me. I have reviewed the chart and agree that the record accurately reflects my personal performance of the history, physical exam, medical decision making, and the department course for this patient. I have also personally directed, reviewed, and agree with the discharge instructions and disposition. <Compa Sood - Last Filed: 08/23/18 20:09> Disposition/Present on Arrival - Present on Arrival Any Indicators Present on Arrival: No History of DVT/PE: No History of Uncontrolled Diabetes: No Urinary Catheter: No History of Decub. Ulcer: No History Surgical Site Infection Following: None - Disposition Have Diagnosis and Disposition been Completed?: Yes Disposition Time: 20:03 Patient Plan: Admission <Romain Mast - Last Filed: 08/23/18 19:58> <Compa Sood - Last Filed: 08/23/18 20:09> - Disposition Diagnosis: Weakness, Fall Disposition: HOSPITALIZED Patient Problems: Current Active Problems Problem Status Onset Fall Acute Weakness Acute Condition: FAIR
[2018-08-23 14:16] LABS: BASO # 0.02 K/mm3 (0.0-2.0); BASO % 0.3 % (0.0-3.0); EOS # 0.2 (0.0-0.7); EOS % 3.7 % (1.5-5.0); GRAN # 3.93 (1.4-6.5); GRAN % 68.3 % (50.0-68.0); HEMOGLOBIN 11.1 g/dL (14.0-18.0); LYMPH # 1.3 (1.2-3.4); LYMPH % 22.1 % (22.0-35.0); MEAN CELL VOLUME 88.8 fl (80.0-105.0); MEAN CORPUSCULAR HEMOGLOBIN 29.5 pg (25.0-35.0); MEAN CORPUSCULAR HGB CONC 33.2 g/dl (31.0-37.0); MEAN PLATELET VOLUME 9.7 fl (7.0-11.0); MONO # 0.3 (0.1-0.6); MONO % 5.6 % (1.0-6.0); RBC 3.76 10^6/uL (3.5-6.1); RED CELL DISTRIBUTION WIDTH 13.5 % (11.5-14.5); WHITE BLOOD COUNT 5.8 10^3/uL (4.5-11.0)
[2018-08-23 14:24] LABS: URINE BILIRUBIN NEGATIVE (NEGATIVE); URINE BLOOD NEGATIVE (NEGATIVE); URINE GLUCOSE (UA) NEGATIVE (NEGATIVE); URINE LEUKOCYTE ESTERASE NEGATIVE Leu/uL (NEGATIVE); URINE PROTEIN NEGATIVE mg/dL (<30 mg/dL); URINE UROBILINOGEN 0.2 E.U./dL (<1 E.U./dL)
[2018-08-23 14:25] LABS: ALB/GLOB RATIO 1.1 (1.1-1.8); ALBUMIN 4.2 g/dL (3.0-4.8); ALT/SGPT 24 U/L (7-56); AST/SGOT 29 U/L (17-59); BLOOD UREA NITROGEN 42 mg/dL (7-21); CALCIUM 9.5 mg/dL (8.4-10.5); GFR NON-AFRICAN AMERICAN 23; URINE APPEARANCE CLEAR (CLEAR); URINE COLOR LIGHT YELLOW (YELLOW)
[2018-08-23 14:27] LABS: INR 1.3; PARTIAL THROMBOPLASTIN TIME 30.7 Seconds (25.1-36.5); PROTHROMBIN TIME 14.9 SECONDS (9.4-12.5)
[2018-08-23 14:37] LABS: TROPONIN I < 0.01 ng/mL
[2018-08-23 14:42] LABS: CK-MB 3.4 ng/mL (0.0-3.6)
--- NOTE | 2018-08-23 15:04 | CT ---
Date of service: 08/23/2018 PROCEDURE: CT HEAD WITHOUT CONTRAST. HISTORY: syncope COMPARISON: None available. TECHNIQUE: Axial computed tomography images were obtained through the head/brain without intravenous contrast. Radiation dose: Total exam DLP = 1014.69 mGy-cm. This CT exam was performed using one or more of the following dose reduction techniques: Automated exposure control, adjustment of the mA and/or kV according to patient size, and/or use of iterative reconstruction technique. FINDINGS: HEMORRHAGE: No intracranial hemorrhage. BRAIN: Good corticomedullary differentiation is seen. Proportional, diffuse expansion of the ventriculosulcal and cisternal spaces is appreciated with minimal white matter lucency compatible with diffuse cerebral atrophy and chronic microangiopathy. No suspicious extra-axial fluid collection is identified and the midline brain anatomy appears grossly nonfocal as imaged. There is no mass effect throughout. VENTRICLES: Unremarkable. No hydrocephalus. CALVARIUM: Unremarkable. PARANASAL SINUSES: Unremarkable as visualized. No significant inflammatory changes. MASTOID AIR CELLS: Unremarkable as visualized. No inflammatory changes. OTHER FINDINGS: None. IMPRESSION: Limited age-related neuro degenerative findings as discussed above. No acute intracranial findings. Cross-sectional imaging follow-up as clinically warranted.
[2018-08-23] MEDS: Sodium Chloride 0.9% 1,000 ML IV SCH (15:37)
--- NOTE | 2018-08-23 15:38 | RAD ---
Date of service: 08/23/2018 HISTORY: generalized weakness COMPARISON: Portable chest 11/22/2017. FINDINGS: LUNGS: No active pulmonary disease. PLEURA: Trace right pleural effusion in question. No left pleural effusion. No pneumothorax bilaterally. CARDIOVASCULAR: No aortic atherosclerotic calcification present. Normal cardiac size. No pulmonary vascular congestion. OSSEOUS STRUCTURES: No significant abnormalities. VISUALIZED UPPER ABDOMEN: Normal. OTHER FINDINGS: None. IMPRESSION: Trace right pleural effusion not excluded. Exam otherwise unremarkable and stable in the interval.
[2018-08-23] MEDS: Insulin Reg-MEDIUM-Coverage SC SCH (22:25)
--- NOTE | 2018-08-24 01:57 | HP ---
DATE OF EXAM: 08/23/2018 HISTORY OF PRESENT ILLNESS: I know Gamaliel very well from [facility] having seen him for a couple of years now. He is a 78-year-old white man with past medical history of Parkinson's, anxiety, high cholesterol, hypertension, diabetes, coronary artery disease status post stents. He walks with a shuffling gait but he gets around fairy well. He is now presenting with bilateral lower extremity weakness, also when he got that he felt weak in his legs and fell to the ground, he did not hit his head. He was on the ground for about 3 hours. No palpitations. He did not bite his tongue. He has Parkinson's. He wears glasses. He has diabetes. SOCIAL HISTORY: Never smoked. He does drink alcohol pretty regularly and recently at [facility]. No substance abuse. ALLERGIES: NO KNOWN DRUG ALLERGIES. MEDICATIONS: He takes Tylenol, Xanax, low-dose aspirin, Lipitor, Cogentin, Sinemet, Plavix, TriCor, Glucophage, Lopressor, cough medicine when needed, Seroquel, Diovan, and Percocet as needed. REVIEW OF SYSTEMS: No acute vision or hearing changes. No sore throat. No chest pain. No shortness of breath. No palpitations. No coughing. No nausea, vomiting, constipation, diarrhea. He has weak lower extremities yet unbalanced, not anxious, not nervous, not depressed. PHYSICAL EXAMINATION VITAL SIGNS: Temperature 98.1, pulse 76, respiratory rate 18, blood pressure 159/66, 98% O2 sat. HEENT: His head is atraumatic, normocephalic. Extraocular muscles are intact. Pupils reactive to light and accommodation. Throat is dry. NECK: Supple. HEART: Regular rate. Normal S1, S2. LUNGS: Decreased breath sounds, but clear to auscultation. ABDOMEN: Soft, nontender. Positive bowel sounds. No guarding. No rebound. No CVA tenderness. EXTREMITIES: No edema. He moves all four extremities, but his lower extremities are weak. NEUROLOGIC: GCS is 15. Cranial nerves II through XII grossly intact. Speech is a little bit off to me. I am going to call in Neurology. Alert and oriented x3; just weak, he had fallen. LABORATORY DATA: He had multiple tests done. CAT scan showed nothing acute. Chest x-ray showed nothing acute. He had a urine which was okay. Chemistry showed 142 sodium, potassium 4.5, BUN , creatinine 2.7, felt he was dehydrated, may be acute kidney injury. GFR is 23, 92 sugar, calcium is 9.5, magnesium 2.2, total bilirubin 0.6, AST 29, ALT 24, alk phos 201. Lactate dehydrogenase was high at 963. Total creatine kinase is high at 231. Troponin I less than 0.01. Total protein is 8. INR is 1.3. White count 5.8, hemoglobin 11.1, hematocrit 33.4, platelets 131. I am tempted to think that I make him an inpatient, keep him over three nights and is planning he need to go to a subacute rehab may be at [facility] so I am going to change him to an admission kind of call in Renal and Neurology for their opinion, and nonetheless we will get physical therapy. I will make him an inpatient; if they say no, he can go home, they will make him an observation tomorrow, but for right now I am going to make him an inpatient and try and save a day to see if his acute kidney injury, renal insufficiency, weakness, staying on the floor after a fall. He is dehydrated. He has got Parkinson's and anxiety. Glen Jauregui DO MTDD
[2018-08-24 05:57] LABS: HEMOGLOBIN 10.8 g/dL (14.0-18.0); MEAN CORPUSCULAR HEMOGLOBIN 28.9 pg (25.0-35.0); MEAN CORPUSCULAR HGB CONC 32.8 g/dl (31.0-37.0); MEAN PLATELET VOLUME 9.3 fl (7.0-11.0); RBC 3.74 10^6/uL (3.5-6.1); RED CELL DISTRIBUTION WIDTH 13.5 % (11.5-14.5); WHITE BLOOD COUNT 5.5 10^3/uL (4.5-11.0)
[2018-08-24 06:27] LABS: ALB/GLOB RATIO 1.2 (1.1-1.8); ALBUMIN 3.9 g/dL (3.0-4.8); CALCIUM 9.2 mg/dL (8.4-10.5)
--- NOTE | 2018-08-24 08:03 | CARD ---
APPROVED REPORT Date of service: 08/23/2018 EKG Measurement Heart [id number] <Conclusion> Sinus rhythm with 1st degree AV block Left bundle branch block
[2018-08-24] MEDS: Insulin Reg-MEDIUM-Coverage SC SCH ×3 (08:25→21:49)
[2018-08-24] MEDS: Carbidopa/Levodopa 25/100 CR PO SCH ×3 (10:00→17:38)
[2018-08-24] MEDS: Fluticasone Nasal 50 mcg/Spray NS SCH (10:01)
--- NOTE | 2018-08-24 10:32 | CP.PCM.APN ---
Subjective - Date & Time of Evaluation Date of Evaluation: 08/24/18 Time of Evaluation: 08:30 - Subjective Subjective: seen and examined 78 y/o M PMHx CAD s/p stents, DM, HTN, HLD, anxiety, parkinson's transferred from [facility] ([facility]) for progressive b/l LE weakness associated with a fall. Patient denies injury remained on floor for 3hrs, no LOC. In ED patient noted to have MARY Dr. Calabrese consulted. Patient denies MESSER, dizziness, fever, chills, chest pain, palpitations, dyspnea, hemoptysis, abdominal pain, N/V/D, hematemesis or rectal bleedingl. Review of Systems - Constitutional Constitutional: As Per HPI - Cardiovascular Cardiovascular: As Per HPI - Respiratory Respiratory: As Per HPI - Gastrointestinal Gastrointestinal: As Per HPI Objective - Vital Signs/Intake and Output Vital Signs (last 24 hours): Temp Pulse Resp BP Pulse Ox 98.4 F 74 20 104/58 L 98 08/24/18 07:00 08/24/18 07:00 08/24/18 07:00 08/24/18 07:00 08/24/18 07:00 Intake and Output: 08/24/18 08/24/18 06:59 18:59 Output Total 2400 Balance -2400 - Medications Medications: Current Medications Alprazolam (Xanax) 0.25 mg PO DAILY PRN; Protocol PRN Reason: Anxiety Stop: 08/30/18 19:17 Aspirin (Ecotrin) 81 mg PO DAILY [facility] Last Admin: 08/24/18 10:01 Dose: 81 mg Atorvastatin Calcium (Lipitor) 40 mg PO DAILY [facility] Last Admin: 08/24/18 10:01 Dose: 40 mg Benztropine Mesylate (Cogentin) 1 mg PO DAILY [facility] Last Admin: 08/24/18 10:04 Dose: 1 mg Carbidopa/Levodopa (Sinemet Cr) 1 tab PO TID [facility] Last Admin: 08/24/18 10:00 Dose: 1 tab Clopidogrel Bisulfate (Plavix) 75 mg PO DAILY [facility] Last Admin: 08/24/18 10:01 Dose: 75 mg Fenofibrate (Tricor) 145 mg PO DAILY [facility] Last Admin: 08/24/18 10:01 Dose: 145 mg Fluticasone Propionate (Flonase) 1 actuation NS DAILY [facility] Last Admin: 08/24/18 10:01 Dose: Not Given Folic Acid (Folic Acid) 1 mg PO DAILY [facility] Last Admin: 08/24/18 10:01 Dose: 1 mg Sodium Chloride (Sodium Chloride 0.9%) 1,000 mls @ 100 mls/hr IV .Q10H [facility] Last Admin: 08/23/18 15:37 Dose: 100 mls/hr Insulin Human Regular (Humulin R Med) 0 units SC ACHS [facility]; Protocol Last Admin: 08/24/18 08:25 Dose: Not Given Metoprolol Tartrate (Lopressor) 12.5 mg PO BID [facility] Last Admin: 08/24/18 10:01 Dose: 12.5 mg Quetiapine Fumarate (Seroquel) 50 mg PO DAILY [facility] Last Admin: 08/24/18 10:00 Dose: 50 mg Sitagliptin Phosphate (Januvia) 100 mg PO HS [facility] Last Admin: 08/23/18 22:25 Dose: 100 mg - Labs Labs: 08/24/18 05:25 08/24/18 05:25 PT 14.9 SECONDS (9.4-12.5) H 08/23/18 13:56 INR 1.30 08/23/18 13:56 APTT 30.7 Seconds (25.1-36.5) 08/23/18 13:56 - Constitutional Appears: Non-toxic, No Acute Distress, Chronically Ill - Head Exam Head Exam: ATRAUMATIC - Eye Exam Eye Exam: EOMI, PERRL - Neck Exam Neck Exam: Full ROM - Respiratory Exam Respiratory Exam: Clear to Ausculation Bilateral, NORMAL BREATHING PATTERN - Cardiovascular Exam Cardiovascular Exam: REGULAR RHYTHM, +S1, +S2 - GI/Abdominal Exam GI & Abdominal Exam: Normal Bowel Sounds - Extremities Exam Extremities Exam: Normal Capillary Refill - Neurological Exam Neurological Exam: CN II-XII Intact, Oriented x3 Neuro motor strength exam: Left Upper Extremity: 5, Right Upper Extremity: 5, Left Lower Extremity: 4, Right Lower Extremity: 4 - Psychiatric Exam Psychiatric exam: Normal Affect Assessment and Plan - Assessment and Plan (Free Text) Assessment: MARY Dehydration Weakness Plan: IVF NSS @ 100cc/hr Avoid nephrotoxic medication Dr. Calabrese consulted will await recommendations Dr. Henderson consulted will await recommendations
[2018-08-24] MEDS: Sodium Chloride 0.9% 1,000 ML IV SCH (14:36)
--- NOTE | 2018-08-24 15:11 | PN ---
DATE: 08/24/2018 SUBJECTIVE: He is resting comfortably in bed. He is eating his breakfast well. He had renal insufficiency, weakness, history of Parkinson disease and acute kidney injury. He is on Cogentin, Ecotrin, Flonase, folic acid, Januvia, Lipitor, Lopressor, Plavix and Seroquel, Sinemet, IV fluids, TriCor and Xanax. PHYSICAL EXAMINATION: GENERAL: He is alert and talking. VITAL SIGNS: He has a 98.4 temperature, 74 pulse, 104/58 blood pressure, 20 respiratory rate, 90% sat on room air. HEAD: Atraumatic, normocephalic. Heart: Regular rate. LUNGS: Decreased breath sounds but clear. ABDOMEN: Soft. EXTREMITIES: No edema. LABORATORY DATA: He had blood work, he has a 5.5 white count, 10.8 hemoglobin, 32.9 hematocrit, 126 platelets. He has 142 sodium, potassium 4.1, BUN 37, creatinine 2.3 getting better. GFR is 28, sugar is 146, calcium is 9.2, total bilirubin is 0.5, AST is 31, ALT is 29, alk phos 59. Total protein 7.3. ASSESSMENT AND PLAN: Just a little bit from being on the floor after a fall. I am waiting for Renal to see him. I need Physical therapy to see him, I need Neurology to see him. I want to get him out of bed to chair and hopefully the kidney functions will continue to improve and we will continue with aggressive treatment and care. Renal insufficiency, acute kidney injury, fall, a little . Glen Jauregui DO MTDJessika
--- NOTE | 2018-08-24 15:32 | CP.PCM.PCO ---
Physician Communication Note - Physician Communication Note Physician Communication Note: dehydrated/deconditoned with PD. C/w sinemet, fluids and PT.
--- NOTE | 2018-08-24 16:43 | CP.PCM.CON ---
History of Present Illness - History of Present Illness History of Present Illness: Nephrology Consultation Note: Assessment: Stable Acute Kidney Injury (N17.9) likely due to pre-renal state fall Diabetic chronic Kidney Disease (E11.22) Hypertensive Chronic Kidney Disease (I12.9) mild acidosis Chronic Kidney Disease (N18.3) Stage 3 with ? mg proteinuria (R80.9) Anemia (D64.9), CAD s/p stent CHF Plan No acute need for renal replacement therapy at this time. Hypertension control with meds as ordered. Maintain hemodynamics stable. Avoid hypotension. Patient not on ACEI/ARB due to recent MARY Monitor Input/Output, daily weights and renal function with basic metabolic panel continue with IVF Check urine analysis, spot protein/creatinine, albumin/creatinine ratio renal and bladder sonogram Anemia work up with TSAT/Ferritin/Vitamin B12/folate Check for 25-OH vitamin D, iPTH, phosphorus level. Dose meds/antibiotics for reduced GFR. Avoid fleets enema/magnesium based laxatives. Avoid nephrotoxins/NSAIDs/ iodinated contrast (unless needed emergently) Glycemic control Further work up/management as per primary team Thanks for allowing me to participate in care of your patient. Will follow patient with you. Please call if any Qs. had d/w team Dr Giorgio Calabrese Office: [phone] Chief Complaint; weakness Reason for consult: Acute Kidney Injury HPI: Pt is a 78 M with hx of diabetes Mellitus ( years), hypertension (years) CAD s/p stent CHF presented with complaints of gen weakness and fall Denies OTC/herbal meds or NSAIDs No recent iodinated contrast exposure. No obvious episodes of low BP. pt feels better now renal fxn better with IVF probably has CKD 3 with baseline cr 1.1-1.4 ROS: Cardiovascular: No chest pain. Pulmonary: No shortness of breath Gastrointestinal: denies abdominal pain No nausea. No vomiting. Genitourinary: No pain while urinating. Denies blood in urine. All other negative except as mentioned in HPI Physical Examination: General Appearance: Comfortable, in no acute respiratory distress, co-operative . Vitals reviewed and noted as below Head; Atraumatic, normocephalic ENT: no ulcers no thrush. Tongue is midline. Oropharynx: no rash or ulcers. EYES: Pupils are equal, round and reactive to light accommodation. Eye muscles and extraocular movement intact. Sclera is anicteric. Neck; supple no lymphadenopathy, no thyromegaly or bruit Lungs: Normal respiratory rate/effort. Breath sounds bilateral equal and clear Heart: Normal rate. s1s2 normal. No rub or gallop. Extremities: no edema. No varicose veins Neurological: Patient is alert, awake and oriented to person, place and time. No focal deficit. Strength bilateral appropriate and equal Skin: Warm and dry. Normal turgor. No rash. Palpitation: Normal elasticity for age Abdomen: Abdomen is soft. Bowel sounds +. There is no abdominal tenderness, no guarding/rigidity no organomegaly Psych: limited insight and normal affect/mood MSK: no joint tenderness or swelling. Digits and nails normal, no deformity : kidney or bladder not palpable Labs/imaging reviewed. Past medical history, past surgical history, family history, social history, allergy reviewed and noted as below Family hx: no hx of CKD. Rest non-contributory Past Patient History - Infectious Disease Hx of Infectious Diseases: None - Past Social History Smoking Status: Former Smoker - CARDIAC Hx Cardiac Disorders: Yes (CAD status post stents.) Hx Hypertension: Yes - PULMONARY Hx Asthma: No Hx Chronic Obstructive Pulmonary Disease (COPD): No - NEUROLOGICAL Hx Parkinson's Disease: Yes - HEENT Hx HEENT Problems: Yes (uses eyeglasses) - RENAL Hx Chronic Kidney Disease: No - ENDOCRINE/METABOLIC Hx Diabetes Mellitus Type 2: Yes - HEMATOLOGICAL/ONCOLOGICAL Hx Anemia: Yes - INTEGUMENTARY Hx Dermatological Problems: No - MUSCULOSKELETAL/RHEUMATOLOGICAL Hx Musculoskeletal Disorders: No (PARKINSONS) Hx Falls: Yes - GASTROINTESTINAL Hx Gastrointestinal Disorders: No - GENITOURINARY/GYNECOLOGICAL Hx Genitourinary Disorders: No - PSYCHIATRIC Hx Emotional Abuse: No Hx Physical Abuse: No - SURGICAL HISTORY Hx Surgeries: No Hx Cardiac Catheterization: No - ANESTHESIA Hx Anesthesia: Yes Hx Anesthesia Reactions: No Hx Malignant Hyperthermia: No Meds Allergies/Adverse Reactions: Allergies Allergy/AdvReac Type Severity Reaction Status Date / Time No Known Allergies Allergy Verified 08/23/18 13:04 - Medications Medications: Current Medications Alprazolam (Xanax) 0.25 mg PO DAILY PRN; Protocol PRN Reason: Anxiety Stop: 08/30/18 19:17 Aspirin (Ecotrin) 81 mg PO DAILY [facility] Last Admin: 08/24/18 10:01 Dose: 81 mg Atorvastatin Calcium (Lipitor) 40 mg PO DAILY [facility] Last Admin: 08/24/18 10:01 Dose: 40 mg Benztropine Mesylate (Cogentin) 1 mg PO DAILY [facility] Last Admin: 08/24/18 10:04 Dose: 1 mg Carbidopa/Levodopa (Sinemet Cr) 1 tab PO TID [facility] Last Admin: 08/24/18 14:36 Dose: 1 tab Clopidogrel Bisulfate (Plavix) 75 mg PO DAILY [facility] Last Admin: 08/24/18 10:01 Dose: 75 mg Fenofibrate (Tricor) 145 mg PO DAILY [facility] Last Admin: 08/24/18 10:01 Dose: 145 mg Fluticasone Propionate (Flonase) 1 actuation NS DAILY [facility] Last Admin: 08/24/18 10:01 Dose: Not Given Folic Acid (Folic Acid) 1 mg PO DAILY [facility] Last Admin: 08/24/18 10:01 Dose: 1 mg Sodium Chloride (Sodium Chloride 0.9%) 1,000 mls @ 100 mls/hr IV .Q10H [facility] Last Admin: 08/24/18 14:36 Dose: 100 mls/hr Insulin Human Regular (Humulin R Med) 0 units SC [facility]; Protocol Last Admin: 08/24/18 12:23 Dose: Not Given Metoprolol Tartrate (Lopressor) 12.5 mg PO BID [facility] Last Admin: 08/24/18 10:01 Dose: 12.5 mg Quetiapine Fumarate (Seroquel) 50 mg PO DAILY [facility] Last Admin: 08/24/18 10:00 Dose: 50 mg Sitagliptin Phosphate (Januvia) 100 mg PO HS [facility] Last Admin: 08/23/18 22:25 Dose: 100 mg Results - Vital Signs Recent Vital Signs: Last Vital Signs Temp 98.4 F 08/24/18 13:34 Pulse 64 08/24/18 13:34 Resp 20 08/24/18 13:34 BP 130/63 08/24/18 13:34 Pulse Ox 96 08/24/18 13:34 - Labs Result Diagrams: 08/24/18 05:25 08/24/18 05:25 Labs: Laboratory Results - last 24 hr 08/23/18 08/24/18 08/24/18 22:18 05:25 05:25 WBC 5.5 RBC 3.74 Hgb 10.8 L Hct 32.9 L MCV 88.0 MCH 28.9 MCHC 32.8 RDW 13.5 Plt Count 126 MPV 9.3 Sodium 142 Potassium 4.1 Chloride 113 H Carbon Dioxide 20 L Anion Gap 13 BUN 37 H Creatinine 2.3 H Est GFR ( Amer) 33 Est GFR (Non-Af Amer) 28 POC Glucose (mg/dL) 135 H Random Glucose 146 H Calcium 9.2 Total Bilirubin 0.5 AST 31 ALT 29 Alkaline Phosphatase 59 Total Protein 7.3 Albumin 3.9 Globulin 3.4 Albumin/Globulin Ratio 1.2 08/24/18 08/24/18 11:10 16:12 WBC RBC Hgb Hct MCV MCH MCHC RDW Plt Count MPV Sodium Potassium Chloride Carbon Dioxide Anion Gap BUN Creatinine Est GFR ( Amer) Est GFR (Non-Af Amer) POC Glucose (mg/dL) 133 H 132 H Random Glucose Calcium Total Bilirubin AST ALT Alkaline Phosphatase Total Protein Albumin Globulin Albumin/Globulin Ratio
[2018-08-24 17:56] LABS: IRON 51 ug/dL (45-180)
[2018-08-24 18:05] LABS: % IRON SATURATION 17 % (20-55); TOTAL IRON BINDING CAPACITY 293 ug/dL (261-462)
--- NOTE | 2018-08-24 23:14 | CON ---
DATE: 08/24/2018 HISTORY OF PRESENT ILLNESS: A 78-year-old with past medical history of diabetes, hypertension, anxiety, Parkinson, and the patient was transferred here from [facility] with a progressive lower extremity weakness. The patient went to get out of the bed and felt weak and fell to the ground, and the patient remained on the ground for few hours. Denies any headache, dizziness. No tongue bite. No urinary incontinence. The patient was recently treated for H. pylori with amoxicillin. ALLERGIES: NO KNOWN DRUG ALLERGY. HOME MEDICATIONS: Sinemet, Plavix, metoprolol, quetiapine, amoxicillin, and Januvia. REVIEW OF SYSTEMS: A 10-point review of systems negative. PHYSICAL EXAMINATION: VITAL SIGNS: Blood pressure 159/66. HEENT: Normocephalic and atraumatic. NECK: Supple. NEUROLOGIC: Awake and oriented to self only. Cranial nerves II through XII were tested. Pupils reactive. Spontaneous movement of the extremities noted. Deep tendon reflexes 1+. Plantars are downgoing. Sensory appears intact. Cerebellar gait deferred. IMPRESSION: A 78-year-old male with past medical history of coronary artery disease, diabetes, hypertension, anxiety, and Parkinson, [facility] Had a [facility]. CAT scan of the head was done which was reported negative; no bleed or stroke. Continue present management. We will follow up. Ta Henderson MD
[2018-08-24 23:19] LABS: FOLATE > 20.0 ng/mL
[2018-08-25] MEDS: Insulin Reg-MEDIUM-Coverage SC SCH ×4 (09:01→18:33)
[2018-08-25] MEDS: Fluticasone Nasal 50 mcg/Spray NS SCH (10:59)
[2018-08-25] MEDS: Carbidopa/Levodopa 25/100 CR PO SCH ×3 (11:01→18:30)
[2018-08-25] MEDS: Sodium Chloride 0.9% 1,000 ML IV SCH (11:01)
--- NOTE | 2018-08-25 11:06 | US ---
Date of service: 08/24/2018 PROCEDURE: Ultrasound of the Kidneys HISTORY: MARY COMPARISON: None available. TECHNIQUE: Sonogram of the kidneys. FINDINGS: RIGHT KIDNEY: Measures: 8.48 x 4.84 x 4.09 cm. Normal in size, contour and echogenicity. No stone, solid mass lesion or hydronephrosis visualized. 1 cm cyst in the upper pole LEFT KIDNEY: Measures: 9.0 x 5.9 x 4.62 cm. Normal in size, contour and echogenicity. No stone, solid mass lesion or hydronephrosis visualized. OTHER FINDINGS: None. IMPRESSION: Unremarkable renal sonogram.
--- NOTE | 2018-08-25 11:08 | US ---
Date of service: 08/24/2018 PROCEDURE: Ultrasound of the Bladder HISTORY: MARY. please assess for PVR as well COMPARISON: None available. TECHNIQUE: Sonographic evaluation of the bladder was performed. FINDINGS: Unremarkable without wall thickening or intraluminal debris. No calculus or gross mass lesion. No free fluid in pelvis. Prevoid Volume: 1037 cc. Post void residual: 476 cc. Prostate volume 47 mL. The right ureteral jet is seen. The left ureteral jet is not seen. Small 6 mm stone in the bladder. The report concurs with the preliminary [facility] report IMPRESSION: Distended bladder and large postvoid residual
--- NOTE | 2018-08-25 12:14 | CP.PCM.PCO ---
Physician Communication Note - Physician Communication Note Physician Communication Note: urology consulted large PVR/MARY
--- NOTE | 2018-08-25 13:39 | CP.PCM.PN ---
Subjective - Date & Time of Evaluation Date of Evaluation: 08/25/18 Time of Evaluation: 13:37 - Subjective Subjective: Nephrology Consultation Note: Assessment: Stable Acute Kidney Injury (N17.9) likely due to pre-renal state fall Diabetic chronic Kidney Disease (E11.22) Hypertensive Chronic Kidney Disease (I12.9) mild acidosis Chronic Kidney Disease (N18.3) Stage 3 with ? mg proteinuria (R80.9) Anemia (D64.9), CAD s/p stent CHF large PVR with enlarged prostate Parkinson disease Plan No acute need for renal replacement therapy at this time. Hypertension control with meds as ordered. Maintain hemodynamics stable. Avoid hypotension. Patient not on ACEI/ARB due to recent MARY Monitor Input/Output, daily weights and renal function with basic metabolic panel continue with IVF started iron, MVI and b12 supplements urology consult and started flomax 0.4 mg daily Check urine analysis, spot protein/creatinine, albumin/creatinine ratio renal and bladder sonogram Anemia work up with TSAT/Ferritin/Vitamin B12/folate Check for 25-OH vitamin D, iPTH, phosphorus level. Dose meds/antibiotics for reduced GFR. Avoid fleets enema/magnesium based laxa tives. Avoid nephrotoxins/NSAIDs/ iodinated contrast (unless needed emergently) Glycemic control Further work up/management as per primary team Thanks for allowing me to participate in care of your patient. Will follow patient with you. Please call if any Qs. had d/w team Dr Giorgio Calabrese Office: [phone] Chief Complaint; weakness Reason for consult: Acute Kidney Injury HPI: Pt is a 78 M with hx of diabetes Mellitus ( years), hypertension (years) CAD s/p stent CHF presented with complaints of gen weakness and fall Denies OTC/herbal meds or NSAIDs No recent iodinated contrast exposure. No obvious episodes of low BP. pt feels better now renal fxn better with IVF probably has CKD 3 with baseline cr 1.1-1.4 ROS: Cardiovascular: No chest pain. Pulmonary: No shortness of breath Gastrointestinal: denies abdominal pain No nausea. No vomiting. Genitourinary: No pain while urinating. Denies blood in urine. sometime reports hesitancy All other negative except as mentioned in HPI Physical Examination: General Appearance: Comfortable, in no acute respiratory distress, co-operative . Vitals reviewed and noted as below Head; Atraumatic, normocephalic ENT: no ulcers no thrush. Tongue is midline. Oropharynx: no rash or ulcers. EYES: Pupils are equal, round and reactive to light accommodation. Eye muscles and extraocular movement intact. Sclera is anicteric. Neck; supple no lymphadenopathy, no thyromegaly or bruit Lungs: Normal respiratory rate/effort. Breath sounds bilateral equal and clear Heart: Normal rate. s1s2 normal. No rub or gallop. Extremities: no edema. No varicose veins Neurological: Patient is alert, awake and oriented to person, place and time. No focal deficit. Strength bilateral appropriate and equal Skin: Warm and dry. Normal turgor. No rash. Palpitation: Normal elasticity for age Abdomen: Abdomen is soft. Bowel sounds +. There is no abdominal tenderness, no guarding/rigidity no organomegaly Psych: limited insight and normal affect/mood MSK: no joint tenderness or swelling. Digits and nails normal, no deformity : kidney or bladder not palpable Labs/imaging reviewed. Past medical history, past surgical history, family history, social history, allergy reviewed and noted as below Family hx: no hx of CKD. Rest non-contributory Objective - Vital Signs/Intake and Output Vital Signs (last 24 hours): Temp Pulse Resp BP Pulse Ox 97.8 F 65 20 106/64 97 08/25/18 06:00 08/25/18 06:00 08/25/18 06:00 08/25/18 11:00 08/25/18 06:00 Intake and Output: 08/25/18 08/25/18 06:59 18:59 Output Total 500 Balance -500 - Medications Medications: Current Medications Alprazolam (Xanax) 0.25 mg PO DAILY PRN; Protocol PRN Reason: Anxiety Stop: 08/30/18 19:17 Last Admin: 08/25/18 11:01 Dose: 0.25 mg Aspirin (Ecotrin) 81 mg PO DAILY [facility] Last Admin: 08/25/18 10:59 Dose: 81 mg Atorvastatin Calcium (Lipitor) 40 mg PO DAILY [facility] Last Admin: 08/25/18 10:59 Dose: 40 mg Benztropine Mesylate (Cogentin) 1 mg PO DAILY [facility] Last Admin: 08/25/18 10:59 Dose: 1 mg Carbidopa/Levodopa (Sinemet Cr) 1 tab PO TID [facility] Last Admin: 08/25/18 13:16 Dose: 1 tab Clopidogrel Bisulfate (Plavix) 75 mg PO DAILY [facility] Last Admin: 08/25/18 11:00 Dose: 75 mg Cyanocobalamin (Vitamin B12 1000 Mcg Tab) 1,000 mcg PO DAILY [facility] Last Admin: 08/25/18 13:16 Dose: 1,000 mcg Fenofibrate (Tricor) 145 mg PO DAILY [facility] Last Admin: 08/25/18 11:01 Dose: 145 mg Ferrous Gluconate (Fergon) 324 mg PO TID [facility] Last Admin: 08/25/18 13:16 Dose: 324 mg Fluticasone Propionate (Flonase) 1 actuation NS DAILY [facility] Last Admin: 08/25/18 10:59 Dose: 1 spray Folic Acid (Folic Acid) 1 mg PO DAILY [facility] Last Admin: 08/25/18 10:59 Dose: 1 mg Sodium Chloride (Sodium Chloride 0.9%) 1,000 mls @ 100 mls/hr IV .Q10H [facility] Last Admin: 08/25/18 11:01 Dose: 100 mls/hr Insulin Human Regular (Humulin R Med) 0 units SC [facility]; Protocol Last Admin: 08/25/18 11:50 Dose: Not Given Metoprolol Tartrate (Lopressor) 12.5 mg PO BID [facility] Last Admin: 08/25/18 11:00 Dose: Not Given Quetiapine Fumarate (Seroquel) 50 mg PO DAILY [facility] Last Admin: 08/25/18 11:00 Dose: 50 mg Sitagliptin Phosphate (Januvia) 100 mg PO HS [facility] Last Admin: 08/24/18 21:49 Dose: 100 mg Tamsulosin HCl (Flomax) 0.4 mg PO DAILY [facility] Last Admin: 08/25/18 13:16 Dose: 0.4 mg Vitamin B Complex/Vit C/Folic Acid (Nephro-Oniel) 1 tab PO 0800 [facility] - Labs Labs: 08/24/18 05:25 08/24/18 05:25 PT 14.9 SECONDS (9.4-12.5) H 08/23/18 13:56 INR 1.30 08/23/18 13:56 APTT 30.7 Seconds (25.1-36.5) 08/23/18 13:56
[2018-08-25 14:00] LABS: HEMOGLOBIN 10.2 g/dL (14.0-18.0); MEAN CELL VOLUME 89.1 fl (80.0-105.0); MEAN CORPUSCULAR HEMOGLOBIN 29.1 pg (25.0-35.0); MEAN CORPUSCULAR HGB CONC 32.7 g/dl (31.0-37.0); MEAN PLATELET VOLUME 9.1 fl (7.0-11.0); RBC 3.5 10^6/uL (3.5-6.1); RED CELL DISTRIBUTION WIDTH 13.6 % (11.5-14.5); WHITE BLOOD COUNT 4.5 10^3/uL (4.5-11.0)
[2018-08-25 14:20] LABS: ALB/GLOB RATIO 1.1 (1.1-1.8); ALBUMIN 3.5 g/dL (3.0-4.8); CALCIUM 8.8 mg/dL (8.4-10.5); URIC ACID 4.2 mg/dL (3.5-8.5)
[2018-08-25 19:46] LABS: CREATININE,RANDOM URINE 34 mg/dL
[2018-08-25 22:37] VITALS: TEMP 97
[2018-08-26 07:22] LABS: HEMOGLOBIN 9.9 g/dL (14.0-18.0); MEAN CELL VOLUME 88.9 fl (80.0-105.0); MEAN CORPUSCULAR HEMOGLOBIN 28.9 pg (25.0-35.0); MEAN CORPUSCULAR HGB CONC 32.5 g/dl (31.0-37.0); MEAN PLATELET VOLUME 9.4 fl (7.0-11.0); RBC 3.43 10^6/uL (3.5-6.1); RED CELL DISTRIBUTION WIDTH 13.5 % (11.5-14.5); WHITE BLOOD COUNT 4.4 10^3/uL (4.5-11.0)
[2018-08-26 07:46] LABS: ALB/GLOB RATIO 1.1 (1.1-1.8); ALBUMIN 3.4 g/dL (3.0-4.8); CALCIUM 8.7 mg/dL (8.4-10.5)
[2018-08-26] MEDS ORDERED: Multivitamin Vitamin B Complex (Nephro-Vite) Tab PO SCH (08:00)
--- NOTE | 2018-08-26 09:01 | PN ---
DATE: 08/25/2018 SUBJECTIVE: I saw him resting comfortably in bed. He slept fairly well. He is eating better. He is in better spirits. He is weak though in his legs. PHYSICAL EXAMINATION: VITAL SIGNS: He has 97.8 temperature, 65 pulse, 107/65 blood pressure, 20 respiratory rate, 97% O2 saturation on room air. HEENT: Head is atraumatic and normocephalic. HEART: Regular rate. LUNGS: Clear to auscultation. ABDOMEN: Soft. EXTREMITIES: No edema. MEDICATIONS: He is currently on Cogentin, Ecotrin, Flonase, folic acid, insulin coverage, Januvia, Lipitor, Lopressor, Plavix, Seroquel, Sinemet, IV fluids, TriCor, Xanax. LABORATORY DATA: He has a white count of 5.5, hemoglobin 10.8, hematocrit 32.9 and platelets 126. i am waiting for chemistry to come back this morning. I am not sure why it is not back. iron saturation of 17, total iron of 51, he has 157 sugar he is very saturated. Folate is greater than 20. I do not have the SMA-7 today, so do not know how his BUN and creatinine are doing, to adjust his intravenous fluids. He was seen by Renal and Neurology. I am hoping that tomorrow will be overnight. I could get him to [facility] at subacute rehabilitation because tomorrow because that was recommended by physical therapy. He has weakness, fall, anxiety, acute kidney injury and hopefully his kidney functions have improved Glen Jauregui DO MTDJessika
[2018-08-26] MEDS: Fluticasone Nasal 50 mcg/Spray NS SCH (10:17)
[2018-08-26] MEDS: Insulin Reg-MEDIUM-Coverage SC SCH ×2 (10:18→11:30)
[2018-08-26 10:19] VITALS: RESP 20; O2SAT 97
[2018-08-26] MEDS: Carbidopa/Levodopa 25/100 CR PO SCH ×2 (10:20→14:18)
[2018-08-26 10:25] VITALS: BP 140/72; PULSE 64
[2018-08-26] MEDS ORDERED: Ergocalciferol 50,000 Intl Units Cap PO SCH (10:45)
--- NOTE | 2018-08-26 11:57 | CP.PCM.PN ---
Subjective - Date & Time of Evaluation Date of Evaluation: 08/26/18 Time of Evaluation: 11:56 - Subjective Subjective: Nephrology Consultation Note: Assessment: Stable Acute Kidney Injury (N17.9) likely due to pre-renal state fall Diabetic chronic Kidney Disease (E11.22) Hypertensive Chronic Kidney Disease (I12.9) mild acidosis Chronic Kidney Disease (N18.3) Stage 3 with ? mg proteinuria (R80.9) Anemia (D64.9), CAD s/p stent CHF large PVR with enlarged prostate Parkinson disease Plan No acute need for renal replacement therapy at this time. Hypertension control with meds as ordered. Maintain hemodynamics stable. Avoid hypotension. Patient not on ACEI/ARB due to recent MARY Monitor Input/Output, daily weights and renal function with basic metabolic panel continue with IVF started iron, MVI and b12 supplements, vit d weekly urology consult and started flomax 0.4 mg daily Check urine analysis, spot protein/creatinine, albumin/creatinine ratio renal and bladder sonogram Anemia work up with TSAT/Ferritin/Vitamin B12/folate Check for 25-OH vitamin D, iPTH, phosphorus level. Dose meds/antibiotics for reduced GFR. Avoid fleets enema/magnesium based laxatives. Avoid nephrotoxins/NSAIDs/ iodinated contrast (unless needed emergently) Glycemic control Further work up/management as per primary team Thanks for allowing me to participate in care of your patient. Will follow patient with you. Please call if any Qs. had d/w team Dr Giorgio Calabrese Office: [phone] Chief Complaint; weakness Reason for consult: Acute Kidney Injury HPI: Pt is a 78 M with hx of diabetes Mellitus ( years), hypertension (years) CAD s/p stent CHF presented with complaints of gen weakness and fall Denies OTC/herbal meds or NSAIDs No recent iodinated contrast exposure. No obvious episodes of low BP. pt feels better now renal fxn better with IVF probably has CKD 3 with baseline cr 1.1-1.4 ROS: Cardiovascular: No chest pain. Pulmonary: No shortness of breath Gastrointestinal: denies abdominal pain No nausea. No vomiting. Genitourinary: No pain while urinating. Denies blood in urine. sometime reports hesitancy All other negative except as mentioned in HPI Physical Examination: General Appearance: Comfortable, in no acute respiratory distress, co-operative . Vitals reviewed and noted as below Head; Atraumatic, normocephalic ENT: no ulcers no thrush. Tongue is midline. Oropharynx: no rash or ulcers. EYES: Pupils are equal, round and reactive to light accommodation. Eye muscles and extraocular movement intact. Sclera is anicteric. Neck; supple no lymphadenopathy, no thyromegaly or bruit Lungs: Normal respiratory rate/effort. Breath sounds bilateral equal and clear Heart: Normal rate. s1s2 normal. No rub or gallop. Extremities: no edema. No varicose veins Neurological: Patient is alert, awake and oriented to person, place and time. No focal deficit. Strength bilateral appropriate and equal Skin: Warm and dry. Normal turgor. No rash. Palpitation: Normal elasticity for age Abdomen: Abdomen is soft. Bowel sounds +. There is no abdominal tenderness, no guarding/rigidity no organomegaly Psych: limited insight and normal affect/mood MSK: no joint tenderness or swelling. Digits and nails normal, no deformity : kidney or bladder not palpable Labs/imaging reviewed. Past medical history, past surgical history, family history, social history, allergy reviewed and noted as below Family hx: no hx of CKD. Rest non-contributory Objective - Vital Signs/Intake and Output Vital Signs (last 24 hours): Temp Pulse Resp BP Pulse Ox 97 F L 64 20 140/72 97 08/25/18 22:36 08/26/18 10:18 08/26/18 06:00 08/26/18 10:18 08/26/18 06:00 Intake and Output: 08/26/18 08/26/18 06:59 18:59 Intake Total 420 Output Total 400 Balance 20 - Medications Medications: Current Medications Alprazolam (Xanax) 0.25 mg PO DAILY PRN; Protocol PRN Reason: Anxiety Stop: 08/30/18 19:17 Last Admin: 08/25/18 11:01 Dose: 0.25 mg Aspirin (Ecotrin) 81 mg PO DAILY [facility] Last Admin: 08/26/18 10:17 Dose: 81 mg Atorvastatin Calcium (Lipitor) 40 mg PO DAILY [facility] Last Admin: 08/26/18 10:18 Dose: 40 mg Benztropine Mesylate (Cogentin) 1 mg PO DAILY [facility] Last Admin: 08/26/18 10:16 Dose: 1 mg Carbidopa/Levodopa (Sinemet Cr) 1 tab PO TID [facility] Last Admin: 08/26/18 10:20 Dose: 1 tab Clopidogrel Bisulfate (Plavix) 75 mg PO DAILY [facility] Last Admin: 08/26/18 10:20 Dose: 75 mg Cyanocobalamin (Vitamin B12 1000 Mcg Tab) 1,000 mcg PO DAILY [facility] Last Admin: 08/26/18 10:24 Dose: 1,000 mcg Ergocalciferol (Drisdol 50,000 Intl Units Cap) 1 cap PO Q7D [facility] Fenofibrate (Tricor) 145 mg PO DAILY [facility] Last Admin: 08/26/18 10:21 Dose: 145 mg Ferrous Gluconate (Fergon) 324 mg PO TID [facility] Last Admin: 08/26/18 10:17 Dose: 324 mg Fluticasone Propionate (Flonase) 1 actuation NS DAILY [facility] Last Admin: 08/26/18 10:17 Dose: Not Given Folic Acid (Folic Acid) 1 mg PO DAILY [facility] Last Admin: 08/26/18 10:18 Dose: 1 mg Insulin Human Regular (Humulin R Med) 0 units SC [facility]; Protocol Last Admin: 08/26/18 10:18 Dose: Not Given Metoprolol Tartrate (Lopressor) 12.5 mg PO BID [facility] Last Admin: 08/26/18 10:18 Dose: 12.5 mg Quetiapine Fumarate (Seroquel) 50 mg PO DAILY [facility] Last Admin: 08/26/18 10:20 Dose: 50 mg Sitagliptin Phosphate (Januvia) 100 mg PO HS [facility] Last Admin: 08/25/18 21:09 Dose: 100 mg Tamsulosin HCl (Flomax) 0.4 mg PO DAILY [facility] Last Admin: 08/26/18 10:17 Dose: 0.4 mg Vitamin B Complex/Vit C/Folic Acid (Nephro-Oniel) 1 tab PO 0800 [facility] Last Admin: 08/26/18 08:00 Dose: 1 tab - Labs Labs: 08/26/18 06:30 08/26/18 06:30 PT 14.9 SECONDS (9.4-12.5) H 08/23/18 13:56 INR 1.30 08/23/18 13:56 APTT 30.7 Seconds (25.1-36.5) 08/23/18 13:56
--- NOTE | 2018-08-26 16:12 | DS ---
HISTORY OF PRESENT ILLNESS: He is going to go to his subacute rehab at [facility] today. He came in with renal insufficiency, weakness, acute kidney injury, diabetes, history of Parkinson's, falls and rhabdo. MEDICATIONS: He is on Cogentin, Ecotrin, Fergon, Flomax, Flonase, folic acid, insulin, Januvia, Lipitor, Lopressor, Nephro-Oniel, Plavix, Seroquel, Sinemet, IV fluids, TriCor, vitamin B12 and Xanax. PHYSICAL EXAMINATION: GENERAL: He is alert. He is comfortable. He wants to go to physical therapy. He is eating more. VITAL SIGNS: He has 97 temperature; 52 pulse, up to 71 pulse; 132/71 blood pressure; 18 respiratory rate; 95% O2 sat on room air. HEENT: His head is atraumatic, normocephalic. He is looking at me, smiling. Mouth, moist. NECK: Supple. HEART: Regular rate. LUNGS: Decreased breath sounds but clear to auscultation. ABDOMEN: Soft, nontender. Positive bowel sounds. EXTREMITIES: No edema. LABORATORY DATA: He has 141 sodium; potassium is 4; BUN is 23, better; creatinine 2.1; GFR is 31; sugar is 104. Calcium is 8.7. Total bili is 0.4, AST is 30, ALT is 19, alk phos 45, total protein is 6.6. TSH is 1.77. White count is 4.4, hemoglobin 9.9, hematocrit 30.5, platelets are 118. Overall, he did very well. He was seen by neurologist and renal. The plan is for a discharge to [facility]. [facility], unremarkable renal ultrasound. We will follow him at [facility] tomorrow. Glen Jauregui DO
== END 2018-08-26 18:16 | DRG 683 ==
LOC: ED 12:52 → ERH 15:09 → OBSVTOIN 19:23 → 5RNO 21:36
PROVIDERS: ADMIT Family Medicine; ATTEND Family Medicine
DX: N17.9 Acute kidney failure, unspecified (principal); I13.0 Hypertensive heart and chronic kidney disease with heart failure and stage 1 through stage 4 chronic kidney disease, or unspecified chronic kidney disease; E87.2 Acidosis; N18.3 Chronic kidney disease, stage 3 (moderate); I50.9 Heart failure, unspecified; E11.22 Type 2 diabetes mellitus with diabetic chronic kidney disease; E86.0 Dehydration; I25.10 Atherosclerotic heart disease of native coronary artery without angina pectoris; G20 Parkinson's disease; N40.0 Benign prostatic hyperplasia without lower urinary tract symptoms; D64.9 Anemia, unspecified; E78.5 Hyperlipidemia, unspecified; F41.9 Anxiety disorder, unspecified; R53.1 Weakness; Z79.84 Long term (current) use of oral hypoglycemic drugs; Z87.891 Personal history of nicotine dependence; Z95.5 Presence of coronary angioplasty implant and graft

== ENCOUNTER 2019-01-02 23:06 | Emergency (ER) | payer MEDICARE, MEDICAID ==
[2019-01-02 23:14] VITALS: BMI 22.7
[2019-01-02 23:20] VITALS: BP 133/69; PULSE 77; RESP 18; TEMP 98.1; O2SAT 96
[2019-01-02] MEDS ORDERED: Oxymetazoline 0.05% Nasal Spray (30 ml) NS STA (23:32)
--- NOTE | 2019-01-02 23:54 | ED PDOC ---
Arrival/HPI - General Chief Complaint: ENT Problem Time Seen by Provider: 01/02/19 23:21 Historian: Patient - History of Present Illness Narrative History of Present Illness (Text): Corie Francis is a 78 year old male, whose past medical history includes CAD s/p stents on Plavix, diabetes, hypertension, hyperlipidemia, and Parkinson's, presents to the emergency department from assisted living for nosebleed from R nare. Patient informs one episode at 16:00 today which resolved by 17:00. Patient states it started again prior to arrival. Patient denies blood going down his throat. Patient denies any fall or headache. Patient notes he has been picking his nose recently, in the right nare. Patient denies any chest pain, shortness of breath, nausea, vomiting, fever, chills, dizziness, or any other complaint. Time/Duration: Prior to Arrival Symptom Onset: Gradual Symptom Course: Unchanged, Intermittent Activities at Onset: Light Context: Home Past Medical History - Provider Review Nursing Documentation Reviewed: Yes Primary Care Physician: Glen Jauregui, DO - Infectious Disease Hx of Infectious Diseases: None - Cardiac Hx Cardiac Disorders: Yes (CAD status post stents.) Hx Hypertension: Yes - Pulmonary Hx Asthma: No Hx Chronic Obstructive Pulmonary Disease (COPD): No - Neurological Hx Parkinson's Disease: Yes - HEENT Hx HEENT Disorder: Yes (uses eyeglasses) - Renal Hx Renal Disorder: No - Endocrine/Metabolic Hx Diabetes Mellitus Type 2: Yes - Hematological/Oncological Hx Anemia: Yes - Integumentary Hx Dermatological Disorder: No - Musculoskeletal/Rheumatological Hx Musculoskeletal Disorders: No (PARKINSONS) Hx Falls: Yes - Gastrointestinal Hx Gastrointestinal Disorders: No - Genitourinary/Gynecological Hx Genitourinary Disorders: No - Psychiatric Hx Emotional Abuse: No Hx Physical Abuse: No Hx Substance Use: No - Surgical History Hx Cardiac Catheterization: No - Anesthesia Hx Anesthesia: Yes Hx Anesthesia Reactions: No Hx Malignant Hyperthermia: No - Suicidal Assessment Feels Threatened In Home Enviroment: No Family/Social History - Physician Review Nursing Documentation Reviewed: Yes Family/Social History: No Known Family HX Smoking Status: Former Smoker Hx Alcohol Use: No Hx Substance Use: No Allergies/Home Meds Allergies/Adverse Reactions: Allergies No Known Allergies Allergy (Verified 08/23/18 13:04) Home Medications: Home Meds Medication Instructions Recorded Confirmed Acetaminophen [Tylenol 325mg tab] 650 mg PO Q4H PRN 01/16/17 08/23/18 Alprazolam [Xanax] 0.25 mg PO DAILY PRN 01/16/17 08/23/18 Aspirin [Adult Low Dose Aspirin EC] 81 mg PO DAILY 01/16/17 08/23/18 Atorvastatin [Lipitor] 40 mg PO DAILY 01/16/17 08/23/18 Carbidopa/Levodopa [Sinemet Cr 1 each PO TID 01/16/17 08/23/18 25-100 Tablet] Clopidogrel [Plavix] 75 mg PO DAILY 01/16/17 08/23/18 Fenofibrate Nanocrystallized 145 mg PO DAILY 01/16/17 08/23/18 [Tricor] Folic Acid 1 mg PO DAILY 01/16/17 08/23/18 Metoprolol Tartrate [Lopressor] 12.5 mg PO BID 01/16/17 08/23/18 QUEtiapine [SEROquel] 50 mg PO DAILY 01/16/17 08/23/18 Benztropine Mesylate 1 mg PO DAILY 08/23/18 08/23/18 SITagliptin [Januvia] 1 tab PO HS 08/23/18 08/23/18 Review of Systems - Physician Review All systems were reviewed & negative as marked: Yes - Review of Systems Constitutional: absent: Fatigue, Fevers, Night Sweats Eyes: absent: Vision Changes, Photophobia, Eye Pain ENT: Epistaxis. absent: Hearing Changes, Tinnitus, TMJ Pain, Voice Changes, Sore Throat, Sinus Congestion Respiratory: absent: SOB Cardiovascular: absent: Chest Pain, Palpitations, Edema, BERNAL Gastrointestinal: absent: Nausea, Vomiting Genitourinary Male: absent: Dysuria, Frequency Musculoskeletal: absent: Arthralgias, Back Pain Skin: absent: Rash Neurological: absent: Headache, Dizziness Psychiatric: absent: Anxiety, Depression, Suicidal Ideation Physical Exam Vital Signs Reviewed: Yes Vital Signs Temp Pulse Resp BP Pulse Ox 01/02/19 23:15 98.1 F 77 18 133/69 96 Temperature: Afebrile Blood Pressure: Normal Pulse: Regular Respiratory Rate: Normal Appearance: Positive for: Well-Appearing, Non-Toxic, Comfortable Pain Distress: None Mental Status: Positive for: Alert and Oriented X 3 - Systems Exam Head: Present: Atraumatic, Normocephalic Pupils: Present: PERRL Extroacular Muscles: Present: EOMI Conjunctiva: Present: Normal Mouth: Present: Moist Mucous Membranes Pharnyx: Present: Other (no orophyrangeal blood noted). No: ERYTHEMA, EXUDATE, TONSILS ENLARGED, Peritonsilar Swelling, Muffled/Hoarse Voice, Strider Nose (Internal): Present: Epistaxis (from right nare). No: No Active Bleeding, Purulent Mucous, Septal Hematoma Neck: Present: Normal Range of Motion. No: Meningeal Signs, MIDLINE TENDERNESS Respiratory/Chest: Present: Clear to Auscultation, Good Air Exchange. No: Respiratory Distress, Accessory Muscle Use Cardiovascular: Present: Regular Rate and Rhythm, Normal S1, S2. No: Murmurs Abdomen: No: Tenderness, Distention, Peritoneal Signs Back: Present: Normal Inspection. No: CVA Tenderness, Midline Tenderness Upper Extremity: Present: Normal Inspection. No: Cyanosis, Edema Lower Extremity: Present: Normal Inspection. No: Edema Neurological: Present: GCS=15, CN II-XII Intact, Speech Normal Skin: Present: Warm, Dry, Normal Color. No: Rashes Psychiatric: Present: Alert, Oriented x 3, Normal Insight, Normal Concentration Medical Decision Making ED Course and Treatment: 01/02/19 23:57 Impression: 78 year old male presents with nosebleed. Likely 2/2 digital trauma as pt has been picking his nose. No indication of MVA or other forms of trauma / fall. Well appearing in NAD with normal neuro exam. No other complaints. No CP / SOB / Abdominal pain / GI or issues. Will likely require packing given recurrent nature of epistaxis. No septal hematoma. No posterior orophyrangeal blood noted, unlikely posterior bleed. Differential Diagnosis included but are not limited to: anterior epistaxis Plan: -- Type and Screen -- CMP -- CBC, Platelets -- Oxymetazoline -- Reassess and disposition Prior Visits: Notes and results from previous visits were reviewed. Progress Notes: 01/03/19 01:04 PROCEDURE: EPISTAXIS MANAGEMENT Performed by the emergency provider Consent: Informed consent was obtained after discussion of the risks, benefits, and alternatives to the procedure. Timeout: A timeout to verify the correct patient, procedure, and site was performed immediately prior to the procedure. Indication: Nasal bleeding control Location: right naris Medication: afrin Bleeding Source: ANTERIOR Cautery: none Packing: Rhino Rocket 5.5 cm Post-procedure: Good hemostasis. The patient was observed following procedure and no repeat episode of bleeding was noted. Patient tolerated the procedure well with no immediate complications. Tolerated well no blood in posterior oropharynx post packing 01/03/19 01:08 labs reviewed cr at baseline, h&h unremarkable no posterior blood pt in nad, tolerating packing well, clear for d/c home with return indications, abx script and f/u - Medication Orders Current Medication Orders: Discontinued Medications Oxymetazoline HCl (Afrin 0.05%) 0.5 ml NS STAT STA Stop: 01/02/19 23:33 - Scribe Statement The provider has reviewed the documentation as recorded by the Scribe Dao Morales Provider Scribe Attestation: All medical record entries made by the Scribe were at my direction and personally dictated by me. I have reviewed the chart and agree that the record accurately reflects my personal performance of the history, physical exam, medical decision making, and the department course for this patient. I have also personally directed, reviewed, and agree with the discharge instructions and disposition. Disposition/Present on Arrival - Present on Arrival Any Indicators Present on Arrival: No History of DVT/PE: No History of Uncontrolled Diabetes: No Urinary Catheter: No History of Decub. Ulcer: No History Surgical Site Infection Following: None - Disposition Have Diagnosis and Disposition been Completed?: Yes Diagnosis: Anterior epistaxis Disposition: HOME/ ROUTINE Disposition Time: 01:09 Condition: STABLE Discharge Instructions (ExitCare): Nosebleeds (DC) Additional Instructions: SEE DR. ECHAVARRIA OR ANOTHER EAR NOSE THROAT DOCTOR [facility] FOR EVALUATION OF YOUR NASAL PACKING. RETURN IF ANY FEVER OR INFECTION OR ANY OTHER ISSUES CORIE FRANCIS, thank you for letting us take care of you today. Your provider was Wayne Egan and you were treated for NOSEBLEED. The emergency medical care you received today was directed at your acute symptoms. If you were prescribed any medication, please fill it and take as directed. It may take several days for your symptoms to resolve. Return to the Emergency Department if your symptoms worsen, do not improve, or if you have any other problems. Please contact your doctor or call one of the physicians/clinics you have been referred to that are listed on the Patient Visit Information form that is included in your discharge packet. Bring any paperwork you were given at discharge with you along with any medications you are taking to your follow up visit. Our treatment cannot replace ongoing medical care by a primary care provider outside of the emergency department. Thank you for allowing the [facility] team to be part of your care today. If you had an X-Ray or CT scan: A Radiologist will review the ED reading if any change in treatment is needed we will contact you. If you had a blood, urine, or wound culture: It will take several days for the results, if any change in treatment is needed we will contact you. If you had an STI test: It will take 48 hours for the results. Please call after 1 week if you have not heard back. Prescriptions: Amoxicillin/Potassium Clav [Augmentin 500-125 Tablet] 1 each PO BID 7 Days #14 tablet Referrals: Glen Jauregui DO [Primary Care Provider] - Follow up with primary Stanley Echavarria DO [Staff Provider] - Follow up with primary [facility] [facility] [Outside] - Follow up with primary [facility] [Outside] - Follow up with primary [facility] [place] - Follow up with primary Forms: [employer] ([employer])
[2019-01-03 00:34] LABS: BASO # 0.05 K/mm3 (0.0-2.0); BASO % 0.8 % (0.0-3.0); EOS # 0.2 (0.0-0.7); EOS % 2.7 % (1.5-5.0); HEMOGLOBIN 9.4 g/dL (14.0-18.0); LYMPH # 1.9 (1.2-3.4); MEAN CELL VOLUME 91.1 fl (80.0-105.0); MEAN CORPUSCULAR HEMOGLOBIN 29.9 pg (25.0-35.0); MEAN CORPUSCULAR HGB CONC 32.9 g/dl (31.0-37.0); MEAN PLATELET VOLUME 9.4 fl (7.0-11.0); MONO # 0.4 (0.1-0.6); MONO % 5.6 % (1.0-6.0); RBC 3.14 10^6/uL (3.5-6.1); RED CELL DISTRIBUTION WIDTH 12.9 % (11.5-14.5); WHITE BLOOD COUNT 6.6 10^3/uL (4.5-11.0)
[2019-01-03 00:40] LABS: INR 1.49; PARTIAL THROMBOPLASTIN TIME 36.6 Seconds (26.9-38.3); PROTHROMBIN TIME 16.5 SECONDS (9.4-12.5)
[2019-01-03 00:46] LABS: ALB/GLOB RATIO 1.3 (1.1-1.8); CALCIUM 9.3 mg/dL (8.4-10.5)
== END 2019-01-03 01:30 | disposition home or self-care (01) ==
LOC: ED 23:06
DX: R04.0 Epistaxis (principal); I25.10 Atherosclerotic heart disease of native coronary artery without angina pectoris; I10 Essential (primary) hypertension; E11.9 Type 2 diabetes mellitus without complications; E78.5 Hyperlipidemia, unspecified; G20 Parkinson's disease; Z95.5 Presence of coronary angioplasty implant and graft; Z79.02 Long term (current) use of antithrombotics/antiplatelets; Z87.891 Personal history of nicotine dependence